=== PATIENT | male | born 1970 | race Caucasian/White ===

== ENCOUNTER → 2016-03-13 | Outpatient (CLI) | payer BC ==
[~2016-03-13] MED LIST: ACET-1256 PO; AMOX875T PO; CETI10TA84 PO; CITA40TA12 PO; ESCI1TAB10 PO; GLUC10007 PO; GLUCTAB7 PO; LEVO-366 PO; MULT-506 PO; NAPR1TAB9 PO; OMEG10007 PO; ONDA4TAB46 PO; OXCA150T2 PO; OXCA1TAB28 PO; OXCA300T PO; OXYC-57 PO; TRL300 PO
--- NOTE | 2016-03-13 10:31 | DIAGNOSTIC IMAGING REPORT ---
ABDOMINAL WALL ULTRASOUND CLINICAL HISTORY: Ventral hernia COMPARISON STUDY: No previous studies for comparison. FINDINGS: Ultrasonographic evaluation of the midline abdominal wall was performed in the area of clinical concern. No hernia was visualized. IMPRESSION: No ultrasonographic evidence of a midline ventral hernia. Electronically signed by: Randolph Pena M.D. 03/13/2016 10:30 AM Dictated Date/Time: 03/13/2016 10:29 AM
== END | disposition home or self-care (01) ==
LOC: C.ULTRBC 09:56
PROVIDERS: ATTEND Internal Medicine
DX: K43.9 Ventral hernia without obstruction or gangrene (principal)

== ENCOUNTER 2016-03-19 18:18 | Emergency (ER) | payer BC ==
[~2016-03-19] VITALS: Ht 188 cm; Wt 140.8 kg
[2016-03-19 18:27] VITALS: TEMP 36.8; Ht 188 cm; Wt 140.8 kg
[2016-03-19] MEDS ORDERED: CITA40TA12 PO (19:29)
[2016-03-19] MEDS ORDERED: CETI10TA84 PO (19:29)
[2016-03-19] MEDS ORDERED: ACET-1256 PO (19:29)
[2016-03-19] MEDS ORDERED: OMEG10007 PO (19:29)
[2016-03-19] MEDS ORDERED: GLUC10007 PO (19:29)
[2016-03-19] MEDS ORDERED: OXCA300T PO (19:29)
[2016-03-19] MEDS ORDERED: OXCA150T2 PO (19:29)
[2016-03-19] MEDS ORDERED: AMOX875T PO (19:30)
[2016-03-19] MEDS ORDERED: MoRPHine SULFATE 10 MG/ML CARP/VIAL IM STA (19:46)
[2016-03-19] MEDS ORDERED: KETOROLAC TROMETHAMINE 60 MG/2 ML VIAL IM STA (19:46)
--- NOTE | 2016-03-19 20:14 | DIAGNOSTIC IMAGING REPORT ---
SINUS CT CT DOSE: 559.13 mGy.cm HISTORY: Frontal headache. TECHNIQUE: Multiaxial CT images of the paranasal sinuses were performed and reformatted in the coronal plane without the use of contrast. COMPARISON: Brain MRI 01/08/2016. FINDINGS: The frontal sinuses, right ethmoid air cells, sphenoid sinuses, and right maxillary sinus are clear. There is near complete opacification of the left maxillary sinus which contains a few small gas bubbles and fluid levels. There is mild mucoperiosteal thickening within the lower ethmoid air cells. There is widening of the left maxillary ostium. There is associated opacification of the left ostiomeatal unit. The orbital floors and lamina papyracea are intact. There is thinning of the left uncinate process. The mastoid air cells are clear. The visualized orbits and brain parenchyma are unremarkable. Minimal right nasal septal deviation with a small right-sided nasal spur. IMPRESSION: Near complete opacification of the left maxillary sinus which contains a a few small gas bubbles/fluid levels which is similar to the prior brain MRI. There is associated widening of the left maxillary ostium/ostiomeatal unit with thinning of the uncinate process. Findings favor acute on chronic left maxillary sinusitis. However, an underlying polyp/lesion could be obscured by the opacification. Therefore, follow up nonemergent ENT consultation is recommended for further evaluation. Electronically signed by: Nikko Melgar M.D. 03/19/2016 8:13 PM Dictated Date/Time: 03/19/2016 8:06 PM
[2016-03-19] MEDS ORDERED: LEVO-366 PO (21:12)
[2016-03-19] MEDS ORDERED: ONDA4TAB46 PO (21:12)
[2016-03-19] MEDS ORDERED: OXYC-57 PO (21:12)
--- NOTE | 2016-03-19 21:15 | EMERGENCY ROOM VISIT NOTE ---
History Report prepared by Kita: Alexei Pino Under the Supervision of: Dr. Deepak Moses D.O. First contact with patient: 19:40 Chief Complaint: REFERRED BY DOCTOR Stated Complaint: HEAD PAIN, WEEK AND BODY STIFFINS History of Present Illness The patient is a 45 year old male who presents to the Emergency Room with complaints of persistent head pain beginning about 9 days ago. He notes that around this past Thanksgiving he had reoccurring upper respiratory infections. He had followed with his PCP regarding an US for a possible hernia and was prescribed Augmentin. He notes he began to develop a headache after taking the Augmentin. The patient rates his pain a 7 or 8 out of 10 in severity, but notes that when it jumps to a 9/10 he begins to have dizziness with his head pain. He has had some neck and body stiffness, and nausea, but denies any fever or vomiting. The patient has taken 1,000 mg of Acetaminophen every 4 or 5 hours which provides short-term relief of his symptoms. Source of History: patient Onset: about 9 days ago Position: head Symptom Intensity: 7-8/10 in severity Quality: other (head pain) Timing: other (persistent) Modifying Factors (Relieving): other (acetaminophen) Associated Symptoms: + nausea, No fevers, No vomiting Note: The patient notes having some occasional dizziness. Review of Systems See HPI for pertinent positives & negatives. A total of 10 systems reviewed and were otherwise negative. Past Medical & Surgical Medical Problems: (1) History of URI (upper respiratory infection) Family History No pertinent family history stated. Social History Smoking Status: Former Smoker Current/Historical Medications Scheduled Amoxicillin & Pot Clavulanate (Augmentin 875-125 mg), 1 TAB PO BID Cetirizine (Zyrtec), 10 MG PO DAILY Citalopram Hydrobromide (Celexa), 40 MG PO QPM Fish Oil ([place]-3), 4 GM PO DAILY Glucosamine Sulfate (Glucosamine), 1,000 MG PO DAILY Levofloxacin (Levaquin), 500 MG PO DAILY Oxcarbazepine (Trileptal), 150 MG PO QPM Oxcarbazepine (Trileptal), 300 MG PO QAM Scheduled PRN Acetaminophen (Tylenol), 1,000 MG PO Q4 PRN for Pain Ondansetron Hcl (Zofran), 4 MG PO Q6H PRN for Nausea Oxycodone/Acetaminophen 5MG/325MG (Percocet 5MG/325MG), 1 TAB PO Q6H PRN for Pain Allergies Coded Allergies: No Known Allergies (Unverified , 03/19/16) Physical Exam Vital Signs Date Time Temp Pulse Resp B/P Pulse Ox O2 Delivery O2 Flow Rate FiO2 03/19/16 20:26 71 16 105/57 96 Room Air 03/19/16 18:27 36.8 80 18 139/87 96 Room Air Physical Exam CONSTITUTIONAL/VITAL SIGNS: Reviewed / noted above. GENERAL: Non-toxic in appearance. INTEGUMENTARY: Warm, dry, and [place]. HEAD: Normocephalic. Tenderness to percussion of the frontal and maxillary sinuses. EYES: without scleral icterus or trauma. ENT/OROPHARYNX: clear and moist. LYMPHADENOPATHY/NECK: Is supple without lymphadenopathy or meningismus. RESPIRATORY: Lungs clear and equal. CARDIOVASCULAR: Regular rate and rhythm. GI/ABDOMEN: Soft and nontender. No organomegaly or pulsatile mass. No rebound or guarding. Normal bowel sounds. EXTREMITIES: Warm and well perfused. BACK: No CVA tenderness. NEUROLOGICAL: Intact without focal deficits. PSYCHIATRIC: normal affect. MUSCULOSKELETAL: Normally developed with good muscle tone. Medical Decision & Procedures ER Provider Diagnostic Interpretation: CT results as stated below per my review and radiologist interpretation: SINUS CT FINDINGS: The frontal sinuses, right ethmoid air cells, sphenoid sinuses, and right maxillary sinus are clear. There is near complete opacification of the left maxillary sinus which contains a few small gas bubbles and fluid levels. There is mild mucoperiosteal thickening within the lower ethmoid air cells. There is widening of the left maxillary ostium. There is associated opacification of the left ostiomeatal unit. The orbital floors and lamina papyracea are intact. There is thinning of the left uncinate process. The mastoid air cells are clear. The visualized orbits and brain parenchyma are unremarkable. Minimal right nasal septal deviation with a small right-sided nasal spur. IMPRESSION: Near complete opacification of the left maxillary sinus which contains a a few small gas bubbles/fluid levels which is similar to the prior brain MRI. There is associated widening of the left maxillary ostium/ostiomeatal unit with thinning of the uncinate process. Findings favor acute on chronic left maxillary sinusitis. However, an underlying polyp/lesion could be obscured by the opacification. Therefore, follow up nonemergent ENT consultation is recommended for further evaluation. Electronically signed by: Nikko Melgar M.D. 03/19/2016 8:13 PM Dictated Date/Time: 03/19/2016 8:06 PM Medications Administered Medications (Trade) Dose Ordered Sig/Nik Route Start Time Stop Time Status Last Admin Dose Admin Ketorolac Tromethamine (Toradol Inj) 60 mg NOW STAT IM 03/19/16 19:46 03/19/16 19:48 DC 03/19/16 19:52 60 MG Morphine Sulfate (MoRPHine SULFATE INJ) 6 mg NOW STAT IM 03/19/16 19:46 03/19/16 19:48 DC 03/19/16 19:52 6 MG ED Course 1941: Previous medical records were reviewed. The patient was evaluated in room C9. A complete history and physical examination was performed. 1945: Ordered Morphine Sulfate 6 mg IM, and Toradol Inj 60 mg IM. Medical Decision Differential includes: Acute intracranial bleed, trauma, meningitis, encephalitis, increased intracranial pressure, mass or mass effect, facial or dental infection, temporal arteritis, CVA, TIA, acute hypertensive emergency, sinusitis, carbon monoxide exposure. This is a 45-year-old male who presents to the ED with a chief complaint headache. The patient states that he has been on 9 days Augmentin for a frontal headache associated with a bili sinus infection. The patient denies any fevers. A little nausea but no vomiting. He has no other complaints at this time. He does have some tenderness to percussion of the frontal maxillary sinuses. A CT scan of the sinuses suggest acute on chronic sinusitis. Nonemergent ENT follow-up was recommended. The patient was started on Levaquin. He was given a referral to Dr. Amador. He was also given a prescription for Zofran and Percocet. Impression Primary Impression: Sinusitis Scribe Attestation The scribe's documentation has been prepared under my direction and personally reviewed by me in its entirety. I confirm that the note above accurately reflects all work, treatment, procedures, and medical decision making performed by me. Departure Information Dispostion Home / Self-Care Prescriptions Ondansetron Hcl (ZOFRAN) 4 Mg Tab 4 MG PO Q6H Y for Nausea, #10 TAB Prov: Deepak Moses D.O. 03/19/16 Oxycodone/Acetaminophen 5MG/325MG (PERCOCET 5MG/325MG) Tab 1 TAB PO Q6H Y for Pain, #20 TAB Prov: Deepak Moses D.O. 03/19/16 Levofloxacin (Levaquin) 500 Mg Tab 500 MG PO DAILY for 10 Days, #10 TAB Prov: Deepak Moses D.O. 03/19/16 Referrals RV. Davila MD (PCP) Patient Instructions [facility], Sinusitis Acute Additional Instructions Levaquin as prescribed. Percocet as prescribed. No driving within 6 hours of use. Do not take additional Tylenol while taking Percocet. Zofran: Allow one tablet to dissolve under the tongue every 6 hours as needed for nausea or vomiting. Follow-up with your doctor next week for recheck. Return for worsening.
[2016-03-19 21:27] VITALS: BP 118/65; PULSE 83; O2SAT 96
[2016-03-19] MEDS ORDERED: PERCOCET HOME PACK PO ONE (21:30)
[2016-05-18] MEDS ORDERED: ESCI1TAB10 PO (08:50)
[2016-05-18] MEDS ORDERED: MULT-506 PO (08:50)
[2016-05-18] MEDS ORDERED: OXCA1TAB28 PO (08:50)
[2016-05-18] MEDS ORDERED: GLUCTAB7 PO (08:50)
[2016-05-18] MEDS ORDERED: TRL300 PO (08:50)
== END 2016-03-19 21:30 | disposition home or self-care (01) ==
LOC: C.EDB 18:20 → C.EDC 21:30
DX: J32.9 Chronic sinusitis, unspecified (principal); Z87.891 Personal history of nicotine dependence

== ENCOUNTER 2016-03-22 09:00 | Inpatient (IN) | payer BC ==
[~2016-03-22] VITALS: Ht 188 cm; Wt 142.5 kg
[~2016-03-22 09:00] MED LIST changes: -ESCI1TAB10 PO; -GLUCTAB7 PO; -MULT-506 PO; -NAPR1TAB9 PO; -OXCA1TAB28 PO; -TRL300 PO
[2016-03-22] MEDS ORDERED: NAPR1TAB9 PO (09:26)
[2016-03-22] MEDS ORDERED: SODIUM CHLORIDE 0.9% 1000ML 500 ML IV STA (09:33)
[2016-03-22] MEDS ORDERED: SODIUM CHLORIDE 0.9% 1000ML 1,000 ML IV STA (09:33)
[2016-03-22] MEDS ORDERED: ONDANSETRON INJ 2 MG/ML 2 ML VIAL IV STA (09:33)
[2016-03-22] MEDS ORDERED: DEXAMETHASONE SOD INJ 10 MG/ML VIAL IV ONE (09:45)
[2016-03-22] MEDS ORDERED: OPTIRAY 320 IV PRN (10:00)
[2016-03-22] MEDS: MoRPHine SULFATE 10 MG/ML CARP/VIAL IV PRN ×2 (10:31→12:52)
[2016-03-22 10:47] LABS: BASO % 0.5 %; BASO ABS # 0.04 K/uL (0-0.2); COMPLETE YES; EOS % 4.9 %; HEMATOCRIT 48.2 % (42-52); IG% 0.5 %; LYMPH % 15.3 %; LYMPH ABS # 1.32 K/uL (1.2-3.4); MEAN CELL VOLUME 86.4 fL (80-100); MEAN CORPUSCULAR HEMOGLOBIN 30.3 pg (25-34); MEAN CORPUSCULAR HGB CONC 35.1 g/dl (32-36); MEAN PLATELET VOLUME 9.5 fL (7.4-10.4); MONO % 7.8 %; PLATELET COUNT 275 K/uL (130-400); RED BLOOD COUNT 5.58 M/uL (4.7-6.1)
[2016-03-22 11:03] LABS: BUN/CREATININE RATIO 13.8 (10-20); CALCIUM 8.9 mg/dl (8.5-10.1); CREATININE 0.98 mg/dl (0.60-1.40); POTASSIUM 4.2 mmol/L (3.5-5.1)
--- NOTE | 2016-03-22 11:50 | DIAGNOSTIC IMAGING REPORT ---
HEAD CT NONCONTRAST CT DOSE: HISTORY: Headache Evaluate for hemorrhage or pathology TECHNIQUE: Multiaxial CT images of the head were performed without the use of intravenous contrast. Comparison: 01/08/2016 Findings: Opacified left maxillary sinus The calvarium and skull base are intact. The ventricles and sulci are within normal limits. There is no mass, hematoma, midline shift, or acute infarct. Impression: Opacified left maxillary sinus. Normal brain. Electronically signed by: Jae Calloway M.D. 03/22/2016 11:49 AM Dictated Date/Time: 03/22/2016 11:47 AM
--- NOTE | 2016-03-22 11:52 | DIAGNOSTIC IMAGING REPORT ---
CT brain angiogram HEAD ANGIO WITH CONTRAST CLINICAL HISTORY: Headache mental status change TECHNIQUE: Transaxial acquisition with multi axial reformatted images COMPARISON STUDY: None FINDINGS: Intracranial vasculature is unremarkable. All major arterial structures are intact. There is no significant stenotic or aneurysmal process. IMPRESSION: Normal study. Opacification left maxillary sinus is again noted. Electronically signed by: Jae Calloway M.D. 03/22/2016 11:51 AM Dictated Date/Time: 03/22/2016 11:49 AM
[2016-03-22] MEDS ORDERED: XYLOCAINE 1%/SOD BICARB 20 ML VIAL INFIL ONE (12:15)
--- NOTE | 2016-03-22 13:58 | DIAGNOSTIC IMAGING REPORT ---
FLUOROSCOPICALLY GUIDED LUMBAR PUNCTURE CLINICAL HISTORY: headache FLUOROSCOPY TIME: 0.2 minutes PROCEDURE: The procedure, risks and benefits were discussed with the patient including the risk of spinal headache, bleeding and infection. The patient agreed to the procedure and informed written consent was obtained. The procedure was performed by Dr. Calloway following a timeout. The left L4-L5 interlaminar space was targeted. Skin overlying the space was prepped and draped in the usual sterile fashion and local anesthesia was achieved with 1% lidocaine. Under intermittent fluoroscopic guidance, a 20-gauge x 3 1/2 in. Sprotte needle was inserted into the thecal sac. A total of 10 cc of clear, colorless cerebral spinal fluid was obtained and spread amongst 4 vials. The patient tolerated the procedure well. There were no immediate complications. The specimens were sent to the laboratory at the request of the referring physician. IMPRESSION: Successful fluoroscopic guided lumbar puncture with removal of 10 cc of clear, colorless cerebral spinal fluid. No immediate complications. Electronically signed by: Jae Calloway M.D. 03/22/2016 1:56 PM Dictated Date/Time: 03/22/2016 1:56 PM
--- NOTE | 2016-03-22 14:12 | EMERGENCY ROOM VISIT NOTE ---
History Report prepared by Kita: Forrest Godoy Under the Supervision of: Dr. Armando Sandhu M.D. First contact with patient: 09:32 Chief Complaint: HEAD PAIN Stated Complaint: SEVERE HEAD PAIN History of Present Illness The patient is a 45 year old male who presents to the Emergency Room with complaints of worsening head pain for the past two weeks. The headache is severe. The pain initially started in the sinuses but has since spread. The headache is more frontal. The patient has been taking leftover Percocet, which hasn't helped much. The patient finds it more difficult to think and feels slower since the onset of this headache. He also notes some rhinorrhea. The patient denies any fevers, nausea, or vomiting. The patient was in the ED two days ago for the headache, which has since worsened. He had a CT of the sinuses. The patient was started on Levaquin in the ED. He finished Augmentin two days ago that he was prescribed by his PCP. The patient hasn't felt any better since taking the new antibiotics. The patient did not fall or hit his head recently. He has had sinus infections before but does not have an extensive history of sinus problems. The patient does not experience headaches often. Source of History: patient Onset: two weeks Position: head Symptom Intensity: severe Timing: worsening Associated Symptoms: No fevers, No nausea, No vomiting Review of Systems See HPI for pertinent positives & negatives. A total of 10 systems reviewed and were otherwise negative. Past Medical & Surgical Medical Problems: (1) Allergic rhinitis (2) Depression (3) History of URI (upper respiratory infection) (4) Low back pain (5) Seizure disorder (6) Sinusitis, acute maxillary Family History No pertinent family history Social History Smoking Status: Former Smoker Current/Historical Medications Scheduled Cetirizine (Zyrtec), 10 MG PO DAILY Citalopram Hydrobromide (Celexa), 40 MG PO QPM Fish Oil ([place]-3), 4 GM PO DAILY Glucosamine Sulfate (Glucosamine), 1,000 MG PO DAILY Levofloxacin (Levaquin), 500 MG PO DAILY Naproxen (Aleve), 440 MG PO DIRECTED Oxcarbazepine (Trileptal), 150 MG PO QPM Oxcarbazepine (Trileptal), 300 MG PO QAM Scheduled PRN Acetaminophen (Tylenol), 1,000 MG PO Q4 PRN for Pain Ondansetron Hcl (Zofran), 4 MG PO Q6H PRN for Nausea Oxycodone/Acetaminophen 5MG/325MG (Percocet 5MG/325MG), 1 TAB PO Q6H PRN for Pain Allergies Coded Allergies: No Known Allergies (Unverified , 03/22/16) Physical Exam Vital Signs Date Time Temp Pulse Resp B/P Pulse Ox O2 Delivery O2 Flow Rate FiO2 03/22/16 16:05 94 Room Air 03/22/16 15:09 72 18 115/66 94 Room Air 03/22/16 13:17 68 16 116/58 92 Room Air 03/22/16 11:44 69 18 119/71 94 Room Air 03/22/16 10:48 66 18 104/55 97 Room Air 03/22/16 09:03 36.7 79 20 150/79 92 Room Air Physical Exam GENERAL: Patient is in no acute distress. HEENT: No acute trauma, normocephalic atraumatic, mucous membranes moist, no nasal congestion, no scleral icterus, no real tenderness to percuss the sinuses. NECK: No stridor, no adenopathy, no meningismus, trachea is midline. LUNGS: Clear to auscultation bilaterally, no wheeze, no rhonchi, breath sounds equal. HEART: Without murmurs gallops or rubs, regular rate and rhythm. ABDOMEN: Soft, nontender, bowel sounds positive, no hernias, no peritonitis. EXTREMITIES: No cyanosis or edema, full range of motion of all the joints without pain or difficulty, no signs for acute trauma. NEUROLOGIC: Oriented x 3, no acute motor or sensory deficits, no focal weakness. SKIN: No rash, no jaundice, mild diaphoresis on the forehead. Medical Decision & Procedures ER Provider Diagnostic Interpretation: CT results as stated below per my review and radiologist interpretation: CT brain angiogram HEAD ANGIO WITH CONTRAST CLINICAL HISTORY: Headache mental status change TECHNIQUE: Transaxial acquisition with multi axial reformatted images COMPARISON STUDY: None FINDINGS: Intracranial vasculature is unremarkable. All major arterial structures are intact. There is no significant stenotic or aneurysmal process. IMPRESSION: Normal study. Opacification left maxillary sinus is again noted. Electronically signed by: Jae Calloway M.D. 03/22/2016 11:51 AM Dictated Date/Time: 03/22/2016 11:[address] CT DOSE: HISTORY: Headache Evaluate for hemorrhage or pathology TECHNIQUE: Multiaxial CT images of the head were performed without the use of intravenous contrast. Comparison: 01/08/2016 Findings: Opacified left maxillary sinus The calvarium and skull base are intact. The ventricles and sulci are within normal limits. There is no mass, hematoma, midline shift, or acute infarct. Impression: Opacified left maxillary sinus. Normal brain. Electronically signed by: Jae Calloway M.D. 03/22/2016 11:49 AM Dictated Date/Time: 03/22/2016 11:47 AM FLUOROSCOPICALLY GUIDED LUMBAR PUNCTURE CLINICAL HISTORY: headache FLUOROSCOPY TIME: 0.2 minutes PROCEDURE: The procedure, risks and benefits were discussed with the patient including the risk of spinal headache, bleeding and infection. The patient agreed to the procedure and informed written consent was obtained. The procedure was performed by Dr. Calloway following a timeout. The left L4-L5 interlaminar space was targeted. Skin overlying the space was prepped and draped in the usual sterile fashion and local anesthesia was achieved with 1% lidocaine. Under intermittent fluoroscopic guidance, a 20-gauge x 3 1/2 in. Sprotte needle was inserted into the thecal sac. A total of 10 cc of clear, colorless cerebral spinal fluid was obtained and spread amongst 4 vials. The patient tolerated the procedure well. There were no immediate complications. The specimens were sent to the laboratory at the request of the referring physician. IMPRESSION: Successful fluoroscopic guided lumbar puncture with removal of 10 cc of clear, colorless cerebral spinal fluid. No immediate complications. Electronically signed by: Jae Calloway M.D. 03/22/2016 1:56 PM Dictated Date/Time: 03/22/2016 1:56 PM Laboratory Results 03/22/16 10:25 Red Blood Count 5.58, Mean Corpuscular Volume 86.4, Mean Corpuscular Hemoglobin 30.3, Mean Corpuscular Hemoglobin Concent 35.1, Mean Platelet Volume 9.5, Neutrophils (%) (Auto) 71.0, Lymphocytes (%) (Auto) 15.3, Monocytes (%) (Auto) 7.8, Eosinophils (%) (Auto) 4.9, Basophils (%) (Auto) 0.5, Neutrophils # (Auto) 6.11, Lymphocytes # (Auto) 1.32, Monocytes # (Auto) 0.67, Eosinophils # (Auto) 0.42, Basophils # (Auto) 0.04 03/22/16 10:25 Test 03/22/16 10:25 03/22/16 13:35 White Blood Count 8.60 K/uL (4.8-10.8) Red Blood Count 5.58 M/uL (4.7-6.1) Hemoglobin 16.9 g/dL (14.0-18.0) Hematocrit 48.2 % (42-52) Mean Corpuscular Volume 86.4 fL (80-100) Mean Corpuscular Hemoglobin 30.3 pg (25-34) Mean Corpuscular Hemoglobin Concent 35.1 g/dl (32-36) Platelet Count 275 K/uL (130-400) Mean Platelet Volume 9.5 fL (7.4-10.4) Neutrophils (%) (Auto) 71.0 % Lymphocytes (%) (Auto) 15.3 % Monocytes (%) (Auto) 7.8 % Eosinophils (%) (Auto) 4.9 % Basophils (%) (Auto) 0.5 % Neutrophils # (Auto) 6.11 K/uL (1.4-6.5) Lymphocytes # (Auto) 1.32 K/uL (1.2-3.4) Monocytes # (Auto) 0.67 K/uL (0.11-0.59) Eosinophils # (Auto) 0.42 K/uL (0-0.5) Basophils # (Auto) 0.04 K/uL (0-0.2) RDW Standard Deviation 39.7 fL (36.4-46.3) RDW Coefficient of Variation 12.5 % (11.5-14.5) Immature Granulocyte % (Auto) 0.5 % Immature Granulocyte # (Auto) 0.04 K/uL (0.00-0.02) Erythrocyte Sedimentation Rate 17 mm/hr (0-14) Anion Gap 7.0 mmol/L (3-11) Est Creatinine Clear Calc Drug Dose 143.9 ml/min Estimated GFR () 109.0 Estimated GFR (Non- 94.1 BUN/Creatinine Ratio 13.8 (10-20) Calcium Level 8.9 mg/dl (8.5-10.1) CSF Color COLORLESS CSF Appearance CLEAR CSF WBC 68 /uL (0-5) CSF RBC 28 /uL (0) CSF Xanthrochromic NO XANTHOCHROMIA CSF Cell Count Tube # 4 CSF Chemistry Tube # 2 CSF Glucose 52 mg/dl (40-70) CSF Total Protein 85.2 mg/dl (15.0-45.0) Laboratory results reviewed by me. Medications Administered Medications (Trade) Dose Ordered Sig/Nik Route Start Time Stop Time Status Last Admin Dose Admin Sodium Chloride (Nss 1000ml) 500 ml @ 999 mls/hr Q31M STAT IV 03/22/16 09:33 03/22/16 10:03 DC 03/22/16 10:31 999 MLS/HR Ondansetron HCl 4 mg 4 mg NOW STAT IV 03/22/16 09:33 03/22/16 09:42 DC 03/22/16 10:32 4 MG Sodium Chloride (Nss 1000ml) 1,000 ml @ 200 mls/hr Q5H STAT IV 03/22/16 09:33 03/22/16 14:32 DC 03/22/16 11:43 200 MLS/HR Morphine Sulfate (MoRPHine SULFATE INJ) 6 mg Q15M PRN IV 03/22/16 09:45 04/05/16 09:44 03/22/16 12:52 6 MG Dexamethasone Sodium Phosphate 10 mg 10 mg NOW ONCE IV 03/22/16 09:45 03/22/16 09:46 DC 03/22/16 10:33 10 MG Ceftriaxone Sodium/Dextrose (Rocephin Inj/D5 50ml) 70 ml @ 100 mls/hr ONE STAT IV 03/22/16 14:37 03/22/16 15:18 DC 03/22/16 14:45 100 MLS/HR Vancomycin HCl (Vancomycin 1gm/ 270ml Nss) 1 gm NOW STAT IV 03/22/16 14:37 03/22/16 14:39 DC 03/22/16 15:22 1 GM Morphine Sulfate (MoRPHine SULFATE INJ) 4 mg Q2H PRN IV 03/22/16 15:15 04/05/16 15:14 03/22/16 15:25 4 MG Procedure Lumbar Puncture Indication: Severe headache. Verbal consent was obtained after the risks and benefits were explained, including but not limited to headache, bleeding/clotting, scarring, infection, pain, and bone/joint/nerve damage. At this time, the risks of the procedure are less than the risks of NOT performing the procedure. A time out was taken and the correct patient and site identified. The patient was placed in the seated position and the back was prepped with betadine and draped in the standard fashion. The L3 intervertebral space was identified, anesthetized locally with 1 % lidocaine without epinephrine, and the spinal needle was inserted through the skin with the bevel parallel to the dural fibers. No vials of CSF were obtained. The stylet was replaced and the needle was removed. A bandaid was placed and the patient was placed in the supine position. The procedure was unsuccessful. ED Course 0932: The patient was evaluated in room B3b. A complete history and physical exam was performed. 0933: BSS 1000 ml @ 200 mls/hr, Zofran 4 mg IV, NSS 500 ml @ 999 mls/hr. 0940: Discussed the risks & benefits of a spinal tap. The patient verbalized understanding and agreement. 0945: Decadron 10 mg IV, Morphine Sulfate 6 mg IV. 1207: Updated the patient. He is willing to have a lumbar puncture. 1227: Lumbar puncture attempted. Please see procedural note above. 1250: The LP was unsuccessful. Will contact Radiology for fluoroscopy. 1252: Spoke with Dr. Calloway, Radiologist. He will attempt the LP under fluoroscopy. 1437: Vancomycin 1 gm / 270 ml NSS IV, Ceftriaxone Sodium 2000 mg / Dextrose 70 ml @ 100 mls/hr. 1440: Updated the patient. He verbalized understanding and agreement. Medicine will be paged. 1445: Discussed the case with Dr. Monge, [facility]. The patient will be evaluated. Medical Decision Differential diagnosis includes sinusitis, failed outpatient treatment, intracranial bleeding, aneurysm, meningitis, encephalitis, dehydration, intracranial mass. There is no leukocytosis or concerning anemia. No significant electrolyte abnormality or kidney failure. Brain CT shows no acute bleed or mass effect. Sinusitis was noted. Brain CT angiography does not show any evidence for aneurysm. On exam, the patient was not toxic or febrile. He did not have tenderness over the sinuses with percussion. There is no meningismus. He had a normal neurologic evaluation. I talked to the patient about a lumbar puncture, he did consent. I was unable to access the spinal canal though after several attempts. Further attempts were halted and the patient was sent to fluoroscopy. They were able to obtain CSF fluid via fluoroscopy. The fluid does suggest a meningitis. No organisms seen on Gram stain. The patient received IV morphine, IV Zofran, IV saline and IV Decadron. He was given IV ceftriaxone and IV vancomycin. He seems to be doing well, he is resting comfortably. I talked to the patient about his findings, I spoke with the social work case manager. The on-call hospitalist was consulted. Consults Time Called: 1245 Consulting Physician: Dr. Calloway, Radiologist Returned Call: [phone]: Spoke with Dr. Calloway, Radiologist. He will attempt the LP under fluoroscopy. Additional Consults: Time Called: 1440 Consulted Physician: Dr. Monge, [facility] Returned Call: 1445 Additional Comments: 1445: Discussed the case with Dr. Monge, [facility]. The patient will be evaluated. Impression Primary Impression: Meningitis Scribe Attestation The scribe's documentation has been prepared under my direction and personally reviewed by me in its entirety. I confirm that the note above accurately reflects all work, treatment, procedures, and medical decision making performed by me. Departure Information Dispostion Being Evaluated By Hospitalist Referrals RV. Davila MD (PCP) Patient Instructions My [facility]
[2016-03-22 14:27] LABS: CSF CHEMISTRY TUBE # 2
[2016-03-22 14:33] LABS: CSF APPEARANCE CLEAR; CSF COLOR COLORLESS; CSF XANTHOCHROMIC NO XANTHOCHROMIA
[2016-03-22 14:34] LABS: CSF TOTAL PROTEIN 85.2 mg/dl (15.0-45.0)
[2016-03-22] MEDS ORDERED: VANCOMYCIN 1GM/270ML NSS IV STA (14:37)
[2016-03-22] MEDS ORDERED: CEFTRIAXONE SOD INJ 2,000 MG in DEXTROSE 5% 50ML 50 ML IV STA (14:37)
[2016-03-22 14:45] LABS: CSF APPEARANCE CLEAR; CSF COLOR COLORLESS; CSF XANTHOCHROMIC NO XANTHOCHROMIA
[2016-03-22] MEDS ORDERED: ACETAMINOPHEN IV 100 ML IV PRN (15:15)
[2016-03-22] MEDS ORDERED: ZOLPIDEM TARTRATE 5 MG TAB PO PRN (15:15)
[2016-03-22] MEDS ORDERED: MAGNESIUM HYDROXIDE SUSP 30 ML UDC PO PRN (15:15)
[2016-03-22] MEDS ORDERED: PROMETHAZINE HCL INJ 12.5 MG in SODIUM CHLORIDE 0.9% 50ML 50 ML IV PRN (15:15)
[2016-03-22] MEDS ORDERED: LORAZEPAM 2 MG/ML 1 ML VIAL IV PRN (15:15)
[2016-03-22] MEDS ORDERED: OXYCODONE/ACETAMINOPHEN 5-325 TAB PO PRN (15:15)
[2016-03-22] MEDS ORDERED: DiphenhydrAMINE HCL 50 MG/ML VIAL IV PRN (15:15)
[2016-03-22] MEDS ORDERED: ONDANSETRON INJ 2 MG/ML 2 ML VIAL IV PRN (15:15)
[2016-03-22] MEDS ORDERED: ALUMINUM/MAGNESIUM/SIMETH (MAALOX MAX) 30 ML UDC PO PRN (15:15)
[2016-03-22] MEDS ORDERED: ACETAMINOPHEN 325 MG TAB PO PRN (15:15)
[2016-03-22] MEDS ORDERED: MoRPHine SULFATE 2 MG/ML CARP IV PRN (15:15)
[2016-03-22] MEDS ORDERED: VANCOMYCIN CONSULT ACTIVE PRN (15:23)
[2016-03-22] MEDS: MoRPHine SULFATE 4 MG/ML 1 ML CARP\\VIAL IV PRN ×2 (15:25→22:53)
[2016-03-22 16:05] VITALS: O2SAT 94; Ht 188 cm; Wt 142.5 kg
--- NOTE | 2016-03-22 16:23 | History and Physical ---
History & Physical Date & Time of Service: Mar 22, 2016 at 16:22 Chief Complaint: Severe Head Pain Primary Care Physician: RV. Davila MD History of Present Illness Source: patient, family The patient is a 45-year-old male who presents emergency department with worsening headache in particular over the past 24 hours. He reports that he initially developed a respiratory infection around Thanksgiving time which did resolve without treatment, then had a recurrence around [place] time which did seem to resolve somewhat. He did shortly after the second episode, developed additional sinus symptoms, and was placed on Augmentin by his PCP. He was seen at the emergency department 3 days ago, and was changed to levofloxacin. With the worsening of symptoms and developing of severe headache over the past 24 hours, he presents to the emergency department for assessment today, underwent a lumbar puncture under fluoroscopic guidance today, and was diagnosed with meningitis, and was then referred for evaluation for admission. Family History No pertinent family history Social History Smoking Status: Former Smoker Smokeless Tobacco Use: No Alcohol Use: none Drug Use: none Marital Status: Housing status: lives with family Multi-Drug Resistant Organisms History of MDRO: No Allergies Coded Allergies: No Known Allergies (Unverified , 03/22/16) Home Medications Scheduled Cetirizine (Zyrtec), 10 MG PO DAILY Citalopram Hydrobromide (Celexa), 40 MG PO QPM Fish Oil ([place]-3), 4 GM PO DAILY Glucosamine Sulfate (Glucosamine), 1,000 MG PO DAILY Levofloxacin (Levaquin), 500 MG PO DAILY Naproxen (Aleve), 440 MG PO DIRECTED Oxcarbazepine (Trileptal), 150 MG PO QPM Oxcarbazepine (Trileptal), 300 MG PO QAM Scheduled PRN Acetaminophen (Tylenol), 1,000 MG PO Q4 PRN for Pain Ondansetron Hcl (Zofran), 4 MG PO Q6H PRN for Nausea Oxycodone/Acetaminophen 5MG/325MG (Percocet 5MG/325MG), 1 TAB PO Q6H PRN for Pain Review of Systems The patient denies chest pain, palpitations, lower extremity swelling, vision change, hearing change, fevers, chills, sweats, weight change, nausea, vomiting , abdominal pain, pelvic pain, blood in urine or stool, dysuria, urinary frequency or urgency, memory loss, rash, abnormal bruising or bleeding, imbalance, focal weakness, arthralgias or myalgias, night sweats. The review of systems is otherwise negative other than for that already noted above, and at least 10 systems have been reviewed. Physical Exam Vital Signs Date Time Temp Pulse Resp B/P Pulse Ox O2 Delivery O2 Flow Rate FiO2 03/22/16 16:05 94 Room Air 03/22/16 15:09 72 18 115/66 94 Room Air 03/22/16 13:17 68 16 116/58 92 Room Air 03/22/16 11:44 69 18 119/71 94 Room Air 03/22/16 10:48 66 18 104/55 97 Room Air 03/22/16 09:03 36.7 79 20 150/79 92 Room Air The patient is awake, well-developed and adequately nourished, alert and oriented 3, normocephalic and atraumatic, lying in bed and in no acute distress. HEENT--PERRL, EOMI, mucous membranes and oropharynx dry. Neck--supple, no JVD or bruits, thyroid normal, trachea midline, no adenopathy. Heart--normal S1 and S2, no extra beats, no murmurs, rubs or gallops. Lungs--clear bilaterally , no respiratory distress, no accessory muscle use. Abdomen--normal bowel sounds and soft, nontender and nondistended, no hernias or masses, no organomegaly. Extremities--no cyanosis, clubbing or edema. There are good distal pulses b/l. Dermatologic--normal skin turgor, normal color, warm and dry, no abnormal lymph nodes, no rash. Neurologic--cranial nerves II through XII grossly intact. Rheumatologic--examination is limited post lumbar puncture. Psychiatric--normal affect. Diagnostics Laboratory Results Results Past 24 Hours Test 03/22/16 10:25 03/22/16 13:35 Range/Units White Blood Count 8.60 4.8-10.8 K/uL Red Blood Count 5.58 4.7-6.1 M/uL Hemoglobin 16.9 14.0-18.0 g/dL Hematocrit 48.2 42-52 % Mean Corpuscular Volume 86.4 80-100 fL Mean Corpuscular Hemoglobin 30.3 25-34 pg Mean Corpuscular Hemoglobin Concent 35.1 32-36 g/dl Platelet Count 275 130-400 K/uL Mean Platelet Volume 9.5 7.4-10.4 fL Neutrophils (%) (Auto) 71.0 % Lymphocytes (%) (Auto) 15.3 % Monocytes (%) (Auto) 7.8 % Eosinophils (%) (Auto) 4.9 % Basophils (%) (Auto) 0.5 % Neutrophils # (Auto) 6.11 1.4-6.5 K/uL Lymphocytes # (Auto) 1.32 1.2-3.4 K/uL Monocytes # (Auto) 0.67 0.11-0.59 K/uL Eosinophils # (Auto) 0.42 0-0.5 K/uL Basophils # (Auto) 0.04 0-0.2 K/uL RDW Standard Deviation 39.7 36.4-46.3 fL RDW Coefficient of Variation 12.5 11.5-14.5 % Immature Granulocyte % (Auto) 0.5 % Immature Granulocyte # (Auto) 0.04 0.00-0.02 K/uL Erythrocyte Sedimentation Rate 17 0-14 mm/hr Sodium Level 140 136-145 mmol/L Potassium Level 4.2 3.5-5.1 mmol/L Chloride Level 103 98-107 mmol/L Carbon Dioxide Level 30 21-32 mmol/L Anion Gap 7.0 3-11 mmol/L Blood Urea Nitrogen 14 7-18 mg/dl Creatinine 0.98 0.60-1.40 mg/dl Est Creatinine Clear Calc Drug Dose 143.9 ml/min Estimated GFR () 109.0 Estimated GFR (Non- 94.1 BUN/Creatinine Ratio 13.8 10-20 Random Glucose 91 70-99 mg/dl Calcium Level 8.9 8.5-10.1 mg/dl CSF Color COLORLESS CSF Appearance CLEAR CSF WBC 68 0-5 /uL CSF RBC 28 0 /uL CSF Xanthrochromic NO XANTHOCHROMIA CSF Cell Count Tube # 4 CSF Chemistry Tube # 2 CSF Glucose 52 40-70 mg/dl CSF Total Protein 85.2 15.0-45.0 mg/dl Microbiology Results 03/22/16 Gram Stain - Final, Resulted 03/22/16 CSF Culture, Resulted Pending Diagnostic Radiology Patient Name: ZOE RAMIREZ Unit Number: [id number] Dictated: 03/22/161146 Transcribed: 03/22/161146 MS Printed Date/Time: [~ rep prt dt]/[~ rep prt tm] [~ rep ct labl] - [~ rep ct ivnm] [facility] [place] [address] Dictated: 03/22/161146 Transcribed: 03/22/16 114 MS Printed Date/Time: [~ rep prt dt]/[~ rep prt tm] [~ rep ct labl] - [~ rep ct ivnm] [~ rep ct add3]] HEAD CT NONCONTRAST CT DOSE: HISTORY: Headache Evaluate for hemorrhage or pathology TECHNIQUE: Multiaxial CT images of the head were performed without the use of intravenous contrast. Comparison: 01/08/2016 Findings: Opacified left maxillary sinus The calvarium and skull base are intact. The ventricles and sulci are within normal limits. There is no mass, hematoma, midline shift, or acute infarct. Impression: Opacified left maxillary sinus. Normal brain. Electronically signed by: Jae Calloway M.D. 03/22/2016 11:49 AM Dictated Date/Time: 03/22/2016 11:47 AM The status of this report is Signed. Draft = Not yet reviewed or approved by Radiologist. Signed = Reviewed and approved by Radiologist. <AttendingPhy></AttendingPhy> <FamilyPhy>RV. Davila MD</ FamilyPhy> <PrimaryPhy>RV. Davila MD</PrimaryPhy> <UnitNumber> [id number]</UnitNumber> <VisitNumber>[id number]</VisitNumber> <PatientName> ZOE RAMIREZ</PatientName> <DateOfBirth>1970</DateOfBirth> <Location> [facility]</Location> <ServiceDate>03/22/16</ServiceDate> <MNE>ESINDI</MNE> < OrderingPhy>Armando Sandhu M.D.</OrderingPhy> <OrderingPhyMNE>f rep ord dr nelson</ OrderingPhyMNE> <DictatingPhyMNE>f rep dict dr nelson</DictatingPhyMNE> <CCListMNE> f rep ct mne</CCListMNE> <AdmittingPhyMNE>f pt admit dr nelson</AdmittingPhyMNE> < AttendingPhyMNE>f pt attend dr nelson</AttendingPhyMNE> <ConsultingPhyMNE>f pt consult dr nelson</ConsultingPhyMNE> <FamilyPhyMNE>f pt fam dr nelson</FamilyPhyMNE> <OtherPhyMNE>f pt other dr nelson</OtherPhyMNE> < PrimaryPhyMNE>f pt prim care dr nelson</PrimaryPhyMNE> <ReferringPhyMNE>f pt referring dr nelson</ReferringPhyMNE> Patient Name: ZOE RAMIREZ Unit Number: [id number] Dictated: 03/22/[id number] Transcribed: 03/22/16 114 MS Printed Date/Time: [~ rep prt dt]/[~ rep prt tm] [~ rep ct labl] - [~ rep ct ivnm] [facility] Department [place], [place] [id number] Dictated: 03/22/161148 Transcribed: 03/22/16 114 MS Printed Date/Time: [~ rep prt dt]/[~ rep prt tm] [~ rep ct labl] - [~ rep ct ivnm] [~ rep ct add3]] CT brain angiogram HEAD ANGIO WITH CONTRAST CLINICAL HISTORY: Headache mental status change TECHNIQUE: Transaxial acquisition with multi axial reformatted images COMPARISON STUDY: None FINDINGS: Intracranial vasculature is unremarkable. All major arterial structures are intact. There is no significant stenotic or aneurysmal process. IMPRESSION: Normal study. Opacification left maxillary sinus is again noted. Electronically signed by: Jae Calloway M.D. 03/22/2016 11:51 AM Dictated Date/Time: 03/22/2016 11:49 AM The status of this report is Signed. Draft = Not yet reviewed or approved by Radiologist. Signed = Reviewed and approved by Radiologist. <AttendingPhy></AttendingPhy> <FamilyPhy>RV. Davila MD</ FamilyPhy> <PrimaryPhy>BalRV. Landa MD</PrimaryPhy> <UnitNumber> [id number]</UnitNumber> <VisitNumber>[id number]</VisitNumber> <PatientName> ZOE RAMIREZ</PatientName> <DateOfBirth>1970</DateOfBirth> <Location> [facility]</Location> <ServiceDate>03/22/16</ServiceDate> <MNE>ESINDI</MNE> < OrderingPhy>Armando Sandhu M.D.</OrderingPhy> <OrderingPhyMNE>f rep ord dr nelson</ OrderingPhyMNE> <DictatingPhyMNE>f rep dict dr nelson</DictatingPhyMNE> <CCListMNE> f rep ct mne</CCListMNE> <AdmittingPhyMNE>f pt admit dr nelson</AdmittingPhyMNE> < AttendingPhyMNE>f pt attend dr nelson</AttendingPhyMNE> <ConsultingPhyMNE>f pt consult dr nelson</ConsultingPhyMNE> <FamilyPhyMNE>f pt fam dr nelson</FamilyPhyMNE> <OtherPhyMNE>f pt other dr nelson</OtherPhyMNE> < PrimaryPhyMNE>f pt prim care dr nelson</PrimaryPhyMNE> <ReferringPhyMNE>f pt referring dr nelson</ReferringPhyMNE> FLUOROSCOPICALLY GUIDED LUMBAR PUNCTURE CLINICAL HISTORY: headache FLUOROSCOPY TIME: 0.2 minutes PROCEDURE: The procedure, risks and benefits were discussed with the patient including the risk of spinal headache, bleeding and infection. The patient agreed to the procedure and informed written consent was obtained. The procedure was performed by Dr. Calloway following a timeout. The left L4-L5 interlaminar space was targeted. Skin overlying the space was prepped and draped in the usual sterile fashion and local anesthesia was achieved with 1% lidocaine. Under intermittent fluoroscopic guidance, a 20-gauge x 3 1/2 in. Sprotte needle was inserted into the thecal sac. A total of 10 cc of clear, colorless cerebral spinal fluid was obtained and spread amongst 4 vials. The patient tolerated the procedure well. There were no immediate complications. The specimens were sent to the laboratory at the request of the referring physician. IMPRESSION: Successful fluoroscopic guided lumbar puncture with removal of 10 cc of clear, colorless cerebral spinal fluid. No immediate complications. Electronically signed by: Jae Calloway M.D. 03/22/2016 1:56 PM Dictated Date/Time: 03/22/2016 1:56 PM The sta Impression Assessment and Plan Meningitis/opacified left maxillary sinusitis--patient will be admitted to the telemetry unit for frequent neuro checks and close monitoring. He is status post lumbar puncture ever needs to remain supine 4 hours and then will be out of bed to chair as tolerated. He has received Decadron 10 mg IV, ceftriaxone 2 g IV and vancomycin IV in the emergency department. He will be continued on Decadron 6 mg IV every 6 hours, ceftriaxone 2 g IV every 12 hours, vancomycin IV per renal dose, and morphine sulfate 2-4 mg IV every 2 hours when necessary. We'll follow CSF studies, blood cultures, and serial CBC with differential, chemistry and magnesium levels. We'll consult infectious disease. Seizure disorder--continue Trileptal 3 mg by mouth every morning and 50 mg by mouth every afternoon. Depression--continue Celexa 40 mg by mouth every afternoon. Allergic rhinitis--continue cetirizine 10 mg by mouth daily. Chronic low back pain--we'll place on a [place] bed. Level of Care Telemetry Advanced Directives Existing Advance Directive: No Existing Living Will: No Existing Power of [employer] Aluminum: No Resuscitation Status FULL RESUSCITATION VTE Prophylaxis VTE Risk Assessment Done? Y/N: Yes Risk Level: Moderate Given or contraindicated: SCD's Social Service Consult None Apply
[2016-03-22 16:37] VITALS: BP 124/74; PULSE 74; TEMP 36.4; O2SAT 93
--- NOTE | 2016-03-22 17:33 | Pharmacy Progress Note ---
Pharmacy Antibiotic Consult Date of Service: Mar 22, 2016. Pharmacy Dosing Scope Pharmacy is consulted to initiate IV Vancomycin dosing therapy, order appropriate labs and adjust drug dose/frequency. Subjective The patient is a 45 year old male admitted on Mar 22, 2016 at 15:06. Objective Height (Feet): 6 Height (Inches): 2.00 Weight (Kilograms): 138.400 Lab Results (24hrs): Laboratory Tests Test 03/22/16 10:25 BUN/Creatinine Ratio 13.8 Blood Urea Nitrogen 14 mg/dl Creatinine 0.98 mg/dl White Blood Count 8.60 K/uL Red Blood Count 5.58 M/uL Hemoglobin 16.9 g/dL Hematocrit 48.2 % Mean Corpuscular Volume 86.4 fL Mean Corpuscular Hemoglobin 30.3 pg Mean Corpuscular Hemoglobin Concent 35.1 g/dl Platelet Count 275 K/uL Mean Platelet Volume 9.5 fL Neutrophils (%) (Auto) 71.0 % Lymphocytes (%) (Auto) 15.3 % Monocytes (%) (Auto) 7.8 % Eosinophils (%) (Auto) 4.9 % Basophils (%) (Auto) 0.5 % Neutrophils # (Auto) 6.11 K/uL Lymphocytes # (Auto) 1.32 K/uL Monocytes # (Auto) 0.67 K/uL Eosinophils # (Auto) 0.42 K/uL Basophils # (Auto) 0.04 K/uL Micro Results: Item Value Date Time Gram Stain - Final Resulted 03/22/16 1335 Cerebral Spinal Fluid Recent Pertinent Medications Item Value Date Time Vancomycin HCl 1 gm 03/22/16 1437 (Vancomycin 1gm/ NOW STAT/IV 03/22/16 1522 270ml Nss) Vancomycin HCl 536 ml @ 200 mls/hr 03/22/16 1800 1800 mg/Sodium TODAY@1800/IV Chloride Vancomycin HCl 534 ml @ 200 mls/hr 03/23/16 0200 1700 mg/Sodium Q8H/IV Chloride Assessment & Plan Vancomycin * 45 yo male admitted w/ meningitis * Loading dose: Vancomycin 2800mg IV x 1 dose (20mg/kg given in 2 separate doses) * Maintenance dose: Vancomycin 1700mg IV q8h (12.3mg/kg--modified dosing d/t BMI 39kg/m2) * Est half-life ~ 6.7hr * Goal trough level: 15-20mcg/mL * Trough level ordered for: 03/23/16 1800 Pharmacy will continue to follow and will adjust dose/frequency as necessary. Thank you
[2016-03-22] MEDS: NSS + 20MEQ KCL 1000ML 1,000 ML IV SCH (17:35)
[2016-03-22] MEDS ORDERED: VANCOMYCIN INJ 1,800 MG in SODIUM CHLORIDE 0.9% 500ML 500 ML IV SCH (18:00)
[2016-03-22] MEDS: DEXAMETHASONE INJ 6 MG in SYRINGE 0 ML IV SCH ×2 (18:29→22:53)
[2016-03-22 20:17] VITALS: BP 117/72; PULSE 86; TEMP 36.2; O2SAT 92
[2016-03-22] MEDS: CITALOPRAM 40 MG TAB PO SCH (20:57)
[2016-03-22] MEDS: OXCARBAZEPINE 150 MG TAB PO SCH (20:57)
[2016-03-22 22:47] VITALS: BP 108/70; PULSE 84; TEMP 36.3; O2SAT 95
[2016-03-23] VITALS (9 sets, daily range): BP systolic 117–139; BP diastolic 66–77; PULSE 70–82; TEMP 36.2–36.5; O2SAT 93–94
[2016-03-23] MEDS: VANCOMYCIN INJ 1,700 MG in SODIUM CHLORIDE 0.9% 500ML 500 ML IV SCH ×2 (03:08→10:21)
[2016-03-23] MEDS: CEFTRIAXONE SOD INJ 2,000 MG in DEXTROSE 5% 50ML 50 ML IV SCH ×2 (03:08→14:28)
[2016-03-23] MEDS: NSS + 20MEQ KCL 1000ML 1,000 ML IV SCH ×2 (03:25→14:28)
[2016-03-23] MEDS: DEXAMETHASONE INJ 6 MG in SYRINGE 0 ML IV SCH ×3 (06:23→18:32)
[2016-03-23 06:58] LABS: COMPLETE YES; EOS % 0.1 %; HEMATOCRIT 41.8 % (42-52); IG% 0.3 %; LYMPH % 6.1 %; LYMPH ABS # 0.93 K/uL (1.2-3.4); MEAN CELL VOLUME 84.8 fL (80-100); MEAN CORPUSCULAR HEMOGLOBIN 28.8 pg (25-34); MEAN PLATELET VOLUME 9.6 fL (7.4-10.4); MONO % 4.1 %; NEUT % 89.4 %; PLATELET COUNT 282 K/uL (130-400); RED BLOOD COUNT 4.93 M/uL (4.7-6.1); WHITE BLOOD COUNT 15.17 K/uL (4.8-10.8)
[2016-03-23 07:19] LABS: INR 1.1 (0.9-1.1); PARTIAL THROMBOPLASTIN RATIO 1.1; PROTHROMBIN TIME (PATIENT) 11.4 SECONDS (9.0-12.0)
[2016-03-23 07:24] LABS: AST/SGOT 10 U/L (15-37); BLOOD UREA NITROGEN 13 mg/dl (7-18); BUN/CREATININE RATIO 16.1 (10-20); CARBON DIOXIDE 24 mmol/L (21-32); CHLORIDE 107 mmol/L (98-107); CREATININE 0.81 mg/dl (0.60-1.40); GLUCOSE 133 mg/dl (70-99); POTASSIUM 4.3 mmol/L (3.5-5.1); SODIUM 141 mmol/L (136-145)
[2016-03-23 07:26] LABS: ALKALINE PHOSPHATASE 84 U/L (45-117); ALT/SGPT 28 U/L (12-78)
--- NOTE | 2016-03-23 10:11 | Medical Consult ---
Consultation Date of Consultation: Mar 23, 2016. Attending Physician: Estelle Mosqueda M.D. Reason for Consultation: Meningitis History of Present Illness 45-year-old previously healthy was admitted to the hospital with approximately 1 week of progressively worsening frontal headaches, up to 9/10 in intensity, associated with neck stiffness, photophobia, ocular tenderness, weakness, fatigue, and some mental confusion. He ultimately came to the emergency department where a lumbar puncture was performed showing a pleocytosis of 97, 100 percent mononuclear cells with mild increase in protein, no hypoglycorrhachia. Gram stain shows white cells but no organisms. Cultures are negative today. Patient feeling better today with headache now rated 2/10 in intensity. Patient states that he became ill around with flu- like illness, with recurrent symptoms around [place] time with sinus congestion and tenderness which has continued. He received courses of Augmentin and levofloxacin prior to his admission without improvement. Patient does have a history of genital herpes simplex infection. Has contact with multiple ill children and adolescent. No significant travel or other exposure history. Does have potential tick exposure. Past Medical/Surgical History Medical Problems: (1) Meningitis Status: Acute (2) Sinusitis Status: Acute Medical Problems: (1) Allergic rhinitis (2) Depression (3) History of URI (upper respiratory infection) (4) Low back pain (5) Seizure disorder (6) Sinusitis, acute maxillary Family History No pertinent family history Social History Smoking Status: Former Smoker Smokeless Tobacco Use: No Alcohol Use: none Drug Use: none Marital Status: Allergies Coded Allergies: No Known Allergies (Unverified , 03/22/16) Current Inpatient Medications Current Inpatient Medications Medications (Trade) Dose Ordered Sig/Nik Route Start Time Stop Time Status Last Admin Dose Admin Ioversol 125 ml 125 ml UD PRN IV 03/22/16 10:00 03/26/16 09:59 Potassium Chloride/Sodium Chloride (Nss + 20meq KCl 1000ml) 1,000 ml @ 100 mls/hr Q10H IV 03/22/16 17:15 04/21/16 15:05 03/23/16 03:25 100 MLS/HR Acetaminophen (Tylenol Tab) 650 mg Q4H PRN PO 03/22/16 15:15 04/21/16 15:14 Zolpidem Tartrate (Ambien Tab) 5 mg HSZ PRN PO 03/22/16 15:15 04/21/16 15:14 03/23/16 03:24 5 MG Cetirizine HCl (zyrTEC TAB) 10 mg DAILY PO 03/23/16 09:00 04/22/16 08:59 Citalopram Hydrobromide (celeXA TAB) 40 mg QPM PO 03/22/16 21:00 04/21/16 20:59 03/22/16 20:57 40 MG Oxcarbazepine (Trileptal Tab) 150 mg QPM PO 03/22/16 21:00 04/21/16 20:59 03/22/16 20:57 150 MG Oxcarbazepine (Trileptal Tab) 300 mg QAM PO 03/23/16 09:00 04/22/16 08:59 Oxycodone/ Acetaminophen (Percocet 5-325mg Tab) 1 tab Q6H PRN PO 03/22/16 15:15 04/05/16 15:14 Lorazepam (Ativan Inj) 0.5 mg Q4H PRN IV 03/22/16 15:15 04/21/16 15:14 Magnesium Hydroxide (Milk Of Magnesia Susp) 30 ml Q6H PRN PO 03/22/16 15:15 04/21/16 15:14 Diphenhydramine HCl (Benadryl Inj) 25 mg Q4H PRN IV 03/22/16 15:15 04/21/16 15:14 Al Hydrox/Mg Hydrox/ Simethicone 15 ml 15 ml Q4H PRN PO 03/22/16 15:15 04/21/16 15:14 Promethazine HCl/ Sodium Chloride (Phenergan Inj/ Nss 50ml) 50.5 ml @ 202 mls/hr Q4H PRN IV 03/22/16 15:15 04/21/16 15:14 Ondansetron HCl (Zofran Inj) 4 mg Q6H PRN IV 03/22/16 15:15 04/21/16 15:14 Morphine Sulfate (MoRPHine SULFATE INJ) 2 mg Q2H PRN IV 03/22/16 15:15 04/05/16 15:14 Morphine Sulfate 4 mg 4 mg Q2H PRN IV 03/22/16 15:15 2/19/17 15:14 03/22/16 22:53 4 MG Acetaminophen 100 ml @ 400 mls/hr Q8H PRN IV 03/22/16 15:15 04/21/16 15:14 03/22/16 17:18 400 MLS/HR Dexamethasone Sodium Phosphate/ Syringe (Decadron Inj/ Syringe) 1.5 ml @ 1 mls/min Q6H IV 03/22/16 18:00 04/21/16 17:59 03/23/16 06:23 1 MLS/MIN Vancomycin HCl 1 ea 1 ea UD PRN N/A 03/22/16 15:23 04/21/16 15:22 Ceftriaxone Sodium 2000 mg/ Dextrose 70 ml @ 100 mls/hr Q12H IV 03/23/16 02:00 04/01/16 15:14 03/23/16 03:08 100 MLS/HR Vancomycin HCl/ Sodium Chloride (Vancomycin Inj/ Nss 500ml) 534 ml @ 200 mls/hr Q8H IV 03/23/16 02:00 04/02/16 01:59 03/23/16 03:08 200 MLS/HR Review of Systems Constitutional: + fatigue, + fever, + weakness Eyes: No problem reported ENT: + nasal symptoms, + tinnitus Respiratory: + cough Cardiovascular: No problem reported Abdomen: No problem reported Musculoskeletal: No problem reported Genitourinary - Male: No problem reported Neurologic: No problem reported Psychiatric: No problem reported Endocrine: No problem reported Hematologic / Lymphatic: No problem reported Integumentary: No problem reported Allergic / Immunologic: No problem reported Physical Exam Date Time Temp Pulse Resp B/P Pulse Ox O2 Delivery O2 Flow Rate FiO2 03/23/16 07:28 36.4 72 18 118/66 94 Room Air 03/23/16 04:23 36.3 78 22 124/71 94 Room Air 03/23/16 00:00 Room Air CPAP 03/22/16 22:47 36.3 84 20 108/70 95 Room Air 03/22/16 20:17 36.2 86 20 117/72 92 Room Air 03/22/16 20:00 Room Air CPAP 03/22/16 16:37 36.4 74 18 124/74 93 Room Air 03/22/16 16:05 94 Room Air 03/22/16 15:09 72 18 115/66 94 Room Air 03/22/16 13:17 68 16 116/58 92 Room Air 03/22/16 11:44 69 18 119/71 94 Room Air 03/22/16 10:48 66 18 104/55 97 Room Air General Appearance: WD/WN, no apparent distress Head: normocephalic, atraumatic Eyes: normal inspection, EOMI, sclerae normal, + pertinent finding (Mild ocular tenderness) ENT: normal ENT inspection, pharynx normal Neck: supple, no adenopathy, thyroid normal, trachea midline Respiratory/Chest: chest non-tender, lungs clear, normal breath sounds, no respiratory distress Cardiovascular: regular rate, rhythm, no gallop, no murmur Abdomen/GI: normal bowel sounds, non tender, soft, no organomegaly Back: normal inspection, no CVA tenderness Extremities/Musculoskelatal: no calf tenderness, non-tender Neurologic/Psych: no motor/sensory deficits, alert, normal mood/affect, oriented x 3 Skin: normal color, warm/dry, + pertinent finding (Erythema and butterfly distribution on face) Lymphatic: no adenopathy Laboratory Results Date/Time Source Procedure Growth Status 03/22/16 13:35 Cerebral Spinal Fluid Gram Stain - Final Resulted 03/22/16 13:35 Cerebral Spinal Fluid CSF Culture Pending Resulted 03/23/16 00:00 Urine , Random Urine Culture Pending Received Last 24 Hours Test 03/22/16 10:25 03/22/16 13:35 03/23/16 00:00 03/23/16 06:30 White Blood Count 8.60 K/uL 15.17 K/uL Red Blood Count 5.58 M/uL 4.93 M/uL Hemoglobin 16.9 g/dL 14.2 g/dL Hematocrit 48.2 % 41.8 % Mean Corpuscular Volume 86.4 fL 84.8 fL Mean Corpuscular Hemoglobin 30.3 pg 28.8 pg Mean Corpuscular Hemoglobin Concent 35.1 g/dl 34.0 g/dl Platelet Count 275 K/uL 282 K/uL Mean Platelet Volume 9.5 fL 9.6 fL Neutrophils (%) (Auto) 71.0 % 89.4 % Lymphocytes (%) (Auto) 15.3 % 6.1 % Monocytes (%) (Auto) 7.8 % 4.1 % Eosinophils (%) (Auto) 4.9 % 0.1 % Basophils (%) (Auto) 0.5 % 0.0 % Neutrophils # (Auto) 6.11 K/uL 13.57 K/uL Lymphocytes # (Auto) 1.32 K/uL 0.93 K/uL Monocytes # (Auto) 0.67 K/uL 0.62 K/uL Eosinophils # (Auto) 0.42 K/uL 0.01 K/uL Basophils # (Auto) 0.04 K/uL 0.00 K/uL RDW Standard Deviation 39.7 fL 38.5 fL RDW Coefficient of Variation 12.5 % 12.4 % Immature Granulocyte % (Auto) 0.5 % 0.3 % Immature Granulocyte # (Auto) 0.04 K/uL 0.04 K/uL Erythrocyte Sedimentation Rate 17 mm/hr Sodium Level 140 mmol/L 141 mmol/L Potassium Level 4.2 mmol/L 4.3 mmol/L Chloride Level 103 mmol/L 107 mmol/L Carbon Dioxide Level 30 mmol/L 24 mmol/L Anion Gap 7.0 mmol/L 10.0 mmol/L Blood Urea Nitrogen 14 mg/dl 13 mg/dl Creatinine 0.98 mg/dl 0.81 mg/dl Est Creatinine Clear Calc Drug Dose 143.9 ml/min 177.3 ml/min Estimated GFR () 109.0 126.2 Estimated GFR (Non- 94.1 108.9 BUN/Creatinine Ratio 13.8 16.1 Random Glucose 91 mg/dl 133 mg/dl Calcium Level 8.9 mg/dl 8.0 mg/dl CSF Color COLORLESS CSF Appearance CLEAR CSF WBC 97 /uL CSF RBC 26 /uL CSF Polynuclear WBCs 0.0 % CSF Mononuclear WBCs 100.0 % CSF Xanthrochromic NO XANTHOCHROMIA CSF Cell Count Tube # 1 CSF Polynuclear WBCs (%) % CSF Chemistry Tube # 2 CSF Glucose 52 mg/dl CSF Total Protein 85.2 mg/dl Prothrombin Time 11.4 SECONDS Prothromb Time International Ratio 1.1 Activated Partial Thromboplast Time 28.8 SECONDS Partial Thromboplastin Ratio 1.1 Magnesium Level 2.0 mg/dl Total Bilirubin 0.4 mg/dl Direct Bilirubin < 0.1 mg/dl Aspartate Amino Transf (AST/SGOT) 10 U/L Alanine Aminotransferase (ALT/SGPT) 28 U/L Alkaline Phosphatase 84 U/L Total Protein 6.5 gm/dl Albumin 3.2 gm/dl Test 03/23/16 09:14 03/23/16 09:[address] DOSE: HISTORY: Headache Evaluate for hemorrhage or pathology TECHNIQUE: Multiaxial CT images of the head were performed without the use of intravenous contrast. Comparison: 01/08/2016 Findings: Opacified left maxillary sinus The calvarium and skull base are intact. The ventricles and sulci are within normal limits. There is no mass, hematoma, midline shift, or acute infarct. Impression: Opacified left maxillary sinus. Normal brain. Electronically signed by: Jae Calloway M.D. 03/22/2016 11:49 AM Dictated Date/Time: 03/22/2016 11:47 AM The statu Assessment & Plan Patient with evidence of meningitis, unlikely bacterial given rapid clinical improvement and lack of polynuclear pleocytosis. Differential diagnosis includes viral infections such as echo virus and Coxsackie virus, and herpes simplex needs to be considered given his history of HSV 2. Also to be considered is possible Lyme disease given potential for tick exposure. Less likely dealing with noninfectious process such as autoimmune/vasculitic process. For now, IV antibiotic should be continued, and I have added acyclovir to cover potential for HSV. I have ordered additional PCR studies for enteroviruses, Lyme, and HSV on CSF. Hopefully, IV antibiotics can be discontinued in the next 24-48 hours. will discuss with all involved, we will follow
[2016-03-23] MEDS: CETIRIZINE HCL 10 MG TAB PO SCH (10:21)
[2016-03-23] MEDS: OXCARBAZEPINE 150 MG TAB PO SCH ×2 (10:21→20:38)
--- NOTE | 2016-03-23 12:15 | Medical Student: [facility] ---
Med Student History & Physical Date & Time of Service: Mar 23, 2016 at 11:40 Chief Complaint: Meningitis Primary Care Physician: RV. Davila MD History of Present Illness Source: patient 45 y/o male hospital admission day one for meningitis currently states that his headache has improved overnight. Yesterday, he rated the CHAVARRIA as a 8-9 out of 10 and today he rates it as a 2-3 out of 10. Additionally, the patient reports that his tinnitus is still present, but improving. The patient also states that he is no longer having difficulty concentrating and trouble finding words. His neck remains slightly stiff. The patient admits to slight discomfort in his lower back around the area of where he had the LP. He denies fever/chills, nausea, vomiting, and rashes. Two weeks ago, the patient began having symptoms and was initially treated for a sinus infection with Augmentin for 10 days. He then went to the ED three days ago and was given Levaquin, which he took for one day before returning the to ED for worsening symptoms yesterday. 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 Past Medical/Surgical History Medical Problems: (1) Meningitis Status: Acute (2) Sinusitis Status: Acute 3. Chronic low back pain 4. Seizure Disorder 5. Depression Social History Smoking Status: Former Smoker Smokeless Tobacco Use: No Alcohol Use: none Drug Use: none Marital Status: Housing status: lives with family Allergies Coded Allergies: No Known Allergies (Unverified , 03/22/16) Medications Acetaminophen (Tylenol), 1,000 MG PO Q4 PRN for Pain Cetirizine (Zyrtec), 10 MG PO DAILY Citalopram Hydrobromide (Celexa), 40 MG PO QPM Fish Oil ([place]-3), 4 GM PO DAILY Glucosamine Sulfate (Glucosamine), 1,000 MG PO DAILY Levofloxacin (Levaquin), 500 MG PO DAILY Naproxen (Aleve), 440 MG PO DIRECTED Ondansetron Hcl (Zofran), 4 MG PO Q6H PRN for Nausea Oxcarbazepine (Trileptal), 150 MG PO QPM Oxcarbazepine (Trileptal), 300 MG PO QAM Oxycodone/Acetaminophen 5MG/325MG (Percocet 5MG/325MG), 1 TAB PO Q6H PRN for Pain Review of Systems Constitutional: No chills, No fever, No weakness, No weight loss Eyes: No discharge, No redness, No worsening of vision ENT: + nasal symptoms, + tinnitus, No sore throat Respiratory: No cough, No dyspnea at rest, No dyspnea on exertion, No shortness of breath, No wheezing Cardiovascular: No chest pain, No edema, No palpitations Abdomen: + constipation, No diarrhea, No nausea, No pain, No vomiting Musculoskeletal: No calf pain, No joint pain, No muscle pain, No swelling Neurologic: + memory loss (improving), No numbness/tingling, No vertigo, No weakness Integumentary: No itch, No new/changing skin lesions, No rash Physical Exam Vital Signs (24 Hours) Date Time Temp Pulse Resp B/P Pulse Ox O2 Delivery O2 Flow Rate FiO2 03/23/16 08:00 94 Room Air 03/23/16 07:28 36.4 72 18 118/66 94 Room Air 03/23/16 04:23 36.3 78 22 124/71 94 Room Air 03/23/16 00:00 Room Air CPAP 03/22/16 22:47 36.3 84 20 108/70 95 Room Air 03/22/16 20:17 36.2 86 20 117/72 92 Room Air 03/22/16 20:00 Room Air CPAP 03/22/16 16:37 36.4 74 18 124/74 93 Room Air 03/22/16 16:05 94 Room Air 03/22/16 15:09 72 18 115/66 94 Room Air 03/22/16 13:17 68 16 116/58 92 Room Air 03/22/16 11:44 69 18 119/71 94 Room Air General Appearance: WD/WN, no apparent distress Head: normocephalic, atraumatic Eyes: normal inspection, PERRL, EOMI ENT: normal ENT inspection, hearing grossly normal Respiratory/Chest: chest non-tender, lungs clear, normal breath sounds, no respiratory distress, no accessory muscle use Cardiovascular: regular rate, rhythm, no edema, no gallop, no murmur Abdomen/GI: normal bowel sounds, non tender, soft, no pulsatile mass Back: no CVA tenderness, + pertinent finding (small red area at site of lumbar puncture, no signs of drainage, no increased warmth) Extremities/Musculoskelatal: normal inspection, no calf tenderness, no pedal edema Neurologic/Psych: trouble 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-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 nml as tested, no motor/sensory deficits, alert, normal mood/affect, oriented x 3, + pertinent finding (cerebellar testing normal ) Skin: normal color, warm/dry, no rash Diagnostics Laboratory Results Results Past 24 Hours Test 03/22/16 13:35 03/23/16 06:30 Range/Units CSF Color COLORLESS CSF Appearance CLEAR CSF WBC 97 0-5 /uL CSF RBC 26 0 /uL CSF Polynuclear WBCs 0.0 % CSF Mononuclear WBCs 100.0 % CSF Xanthrochromic NO XANTHOCHROMIA CSF Cell Count Tube # 1 CSF Polynuclear WBCs (%) % CSF Chemistry Tube # 2 CSF Glucose 52 40-70 mg/dl CSF Total Protein 85.2 15.0-45.0 mg/dl White Blood Count 15.17 4.8-10.8 K/uL Red Blood Count 4.93 4.7-6.1 M/uL Hemoglobin 14.2 14.0-18.0 g/dL Hematocrit 41.8 42-52 % Mean Corpuscular Volume 84.8 80-100 fL Mean Corpuscular Hemoglobin 28.8 25-34 pg Mean Corpuscular Hemoglobin Concent 34.0 32-36 g/dl Platelet Count 282 130-400 K/uL Mean Platelet Volume 9.6 7.4-10.4 fL Neutrophils (%) (Auto) 89.4 % Lymphocytes (%) (Auto) 6.1 % Monocytes (%) (Auto) 4.1 % Eosinophils (%) (Auto) 0.1 % Basophils (%) (Auto) 0.0 % Neutrophils # (Auto) 13.57 1.4-6.5 K/uL Lymphocytes # (Auto) 0.93 1.2-3.4 K/uL Monocytes # (Auto) 0.62 0.11-0.59 K/uL Eosinophils # (Auto) 0.01 0-0.5 K/uL Basophils # (Auto) 0.00 0-0.2 K/uL RDW Standard Deviation 38.5 36.4-46.3 fL RDW Coefficient of Variation 12.4 11.5-14.5 % Immature Granulocyte % (Auto) 0.3 % Immature Granulocyte # (Auto) 0.04 0.00-0.02 K/uL Prothrombin Time 11.4 9.0-12.0 SECONDS Prothromb Time International Ratio 1.1 0.9-1.1 Activated Partial Thromboplast Time 28.8 21.0-31.0 SECONDS Partial Thromboplastin Ratio 1.1 Sodium Level 141 136-145 mmol/L Potassium Level 4.3 3.5-5.1 mmol/L Chloride Level 107 98-107 mmol/L Carbon Dioxide Level 24 21-32 mmol/L Anion Gap 10.0 3-11 mmol/L Blood Urea Nitrogen 13 7-18 mg/dl Creatinine 0.81 0.60-1.40 mg/dl Est Creatinine Clear Calc Drug Dose 177.3 ml/min Estimated GFR () 126.2 Estimated GFR (Non- 108.9 BUN/Creatinine Ratio 16.1 10-20 Random Glucose 133 70-99 mg/dl Calcium Level 8.0 8.5-10.1 mg/dl Magnesium Level 2.0 1.8-2.4 mg/dl Total Bilirubin 0.4 0.2-1 mg/dl Direct Bilirubin < 0.1 0-0.2 mg/dl Aspartate Amino Transf (AST/SGOT) 10 15-37 U/L Alanine Aminotransferase (ALT/SGPT) 28 12-78 U/L Alkaline Phosphatase 84 45-117 U/L Total Protein 6.5 6.4-8.2 gm/dl Albumin 3.2 3.4-5.0 gm/dl Microbiology Results 03/22/16 Gram Stain - Final, Resulted 03/22/16 CSF Culture - Preliminary, Resulted NO GROWTH TO DATE. Diagnostic Radiology CTA BRAIN IMPRESSION: Normal study. Opacification left maxillary sinus is again noted. HEAD CT Impression: Opacified left maxillary sinus. Normal brain. Normal EKG Impression Assessment and Plan 45y/o male hospital admission day one for meningitis. The patient's CSF is clear with no xanthochromia with a WBC of 97. Given these values, the meningitis is likely viral in nature. However, the patient was on augmentin for ten days and levaquin for one day prior to the lumbar puncture. Antibiotics can cause the WBC of the CSF to not be accurate in its representation, therefore, a bacterial source for the infection is not ruled out. Gram stain of CSF was negative and final cultures is preliminarily showing no growth. The patient has a history of work exposure to infectious substances such as saliva. Also of note , the patient has been treated for a sinus infection and his head CT showed an opacified maxillary sinus. It is possible a sinus infection to have spread from the sinus to the brain. Will wait for the final reading of the CSF culture. 1. Meningitis, uncertain etiology- Gram stain negative and CSF preliminarily showing no growth. Continue to treat with Ceftriaxone Q12H IV 70ml and 100mls/ hr and Vancomycin 534ml at 200 mls.hour Q8Hr IV until the results of the CSF culture are final. Administer Dexamethasone Sodium Phosphate 1.5ml and 1mls/min Q6H IV. Administer Potassium Chloride IV. Morphine Sulfate 4mg IV PRN for pain control. Continue to monitor vital signs and CBC, looking for the potential of worsening infection. CSF serology pending. 2. Seizure Disorder- Administer Oxcarbazepine 300mg PO QAM. 3. Depression- Administer Citalopram Hydrobromide 40mg QPM PO. 4. Chronic back pain- Administer Oxycodone/Acetaminophen 1 tab PO PRN for pain. 5. Allergic Rhinitis- Administer 10mg PO daily. Advanced Directives Existing Advance Directive: No Existing Living Will: No Existing Power of Real Estate Agent/Broker: No
--- NOTE | 2016-03-23 13:38 | Family Medicine Progress Note ---
Progress Note Date of Service Mar 23, 2016. Subjective Pt evaluation today including: conversation w/ patient, physical exam Vasquez reports his headache has improved today. 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 Reports his symptoms have been on and off since . He had sinus congestion and increased drainage that went away after and returned around [place]. He then had about 2 weeks of symptoms, then went to see his PCP and had a 10 day course of Augmentin for sinusitis. The course of these Abx finished last Wednesday. He had persistent symptoms so he then went to the ED three days ago and was given Levaquin, which he took for one day before returning the to ED for worsening symptoms yesterday. Currently, he feels really well. He is sitting reading articles on his laptop, and is eager to get back to work. Reports current headache 2/10 severity. Constitutional: No chills, No fever, No sweats, No weakness, No weight loss Eyes: No worsening of vision ENT: + tinnitus, No dental problems, No hearing loss, No nasal symptoms, No sore throat, No unusual epistaxis Respiratory: No cough, No shortness of breath, No sputum, No wheezing Cardiovascular: No chest pain Abdomen: No pain Musculoskeletal: No joint pain Male : No dysuria Neurologic: No memory loss Psychiatric: No depression symptoms Endo: No fatigue All Other Systems: Reviewed and Negative Medications Current Inpatient Medications Medications (Trade) Dose Ordered Sig/Nik Route Start Time Stop Time Status Last Admin Dose Admin Ioversol 125 ml 125 ml UD PRN IV 03/22/16 10:00 03/26/16 09:59 Potassium Chloride/Sodium Chloride (Nss + 20meq KCl 1000ml) 1,000 ml @ 100 mls/hr Q10H IV 03/22/16 17:15 04/21/16 15:05 03/23/16 03:25 100 MLS/HR Acetaminophen (Tylenol Tab) 650 mg Q4H PRN PO 03/22/16 15:15 04/21/16 15:14 Zolpidem Tartrate (Ambien Tab) 5 mg HSZ PRN PO 03/22/16 15:15 04/21/16 15:14 03/23/16 03:24 5 MG Cetirizine HCl (zyrTEC TAB) 10 mg DAILY PO 03/23/16 09:00 04/22/16 08:59 03/23/16 10:21 10 MG Citalopram Hydrobromide (celeXA TAB) 40 mg QPM PO 03/22/16 21:00 04/21/16 20:59 03/22/16 20:57 40 MG Oxcarbazepine (Trileptal Tab) 150 mg QPM PO 03/22/16 21:00 04/21/16 20:59 03/22/16 20:57 150 MG Oxcarbazepine (Trileptal Tab) 300 mg QAM PO 03/23/16 09:00 04/22/16 08:59 03/23/16 10:21 300 MG Oxycodone/ Acetaminophen (Percocet 5-325mg Tab) 1 tab Q6H PRN PO 03/22/16 15:15 04/05/16 15:14 Lorazepam (Ativan Inj) 0.5 mg Q4H PRN IV 03/22/16 15:15 04/21/16 15:14 Magnesium Hydroxide (Milk Of Magnesia Susp) 30 ml Q6H PRN PO 03/22/16 15:15 04/21/16 15:14 Diphenhydramine HCl (Benadryl Inj) 25 mg Q4H PRN IV 03/22/16 15:15 04/21/16 15:14 Al Hydrox/Mg Hydrox/ Simethicone 15 ml 15 ml Q4H PRN PO 03/22/16 15:15 04/21/16 15:14 Promethazine HCl/ Sodium Chloride (Phenergan Inj/ Nss 50ml) 50.5 ml @ 202 mls/hr Q4H PRN IV 03/22/16 15:15 04/21/16 15:14 Ondansetron HCl (Zofran Inj) 4 mg Q6H PRN IV 03/22/16 15:15 04/21/16 15:14 Morphine Sulfate (MoRPHine SULFATE INJ) 2 mg Q2H PRN IV 03/22/16 15:15 04/05/16 15:14 03/23/16 12:36 2 MG Morphine Sulfate 4 mg 4 mg Q2H PRN IV 03/22/16 15:15 04/05/16 15:14 03/22/16 22:53 4 MG Acetaminophen 100 ml @ 400 mls/hr Q8H PRN IV 03/22/16 15:15 04/21/16 15:14 03/22/16 17:18 400 MLS/HR Dexamethasone Sodium Phosphate/ Syringe (Decadron Inj/ Syringe) 1.5 ml @ 1 mls/min Q6H IV 03/22/16 18:00 04/21/16 17:59 03/23/16 12:35 1 MLS/MIN Vancomycin HCl 1 ea 1 ea UD PRN N/A 03/22/16 15:23 04/21/16 15:22 Ceftriaxone Sodium 2000 mg/ Dextrose 70 ml @ 100 mls/hr Q12H IV 03/23/16 02:00 04/01/16 15:14 03/23/16 03:08 100 MLS/HR Vancomycin HCl/ Sodium Chloride (Vancomycin Inj/ Nss 500ml) 534 ml @ 200 mls/hr Q8H IV 03/23/16 02:00 04/02/16 01:59 03/23/16 10:21 200 MLS/HR Objective Vital Signs Date Time Temp Pulse Resp B/P Pulse Ox O2 Delivery O2 Flow Rate FiO2 03/23/16 12:27 36.4 82 16 131/73 93 Room Air 03/23/16 12:00 93 Room Air 03/23/16 08:00 94 Room Air 03/23/16 07:28 36.4 72 18 118/66 94 Room Air 03/23/16 04:23 36.3 78 22 124/71 94 Room Air 03/23/16 00:00 Room Air CPAP 03/22/16 22:47 36.3 84 20 108/70 95 Room Air 03/22/16 20:17 36.2 86 20 117/72 92 Room Air 03/22/16 20:00 Room Air CPAP 03/22/16 16:37 36.4 74 18 124/74 93 Room Air 03/22/16 16:05 94 Room Air 03/22/16 15:09 72 18 115/66 94 Room Air Physical Exam General Appearance: WD/WN, no apparent distress Eyes: normal inspection, PERRL ENT: hearing grossly normal Neck: supple, no JVD Respiratory/Chest: lungs clear, normal breath sounds, no respiratory distress Cardiovascular: regular rate, rhythm, no murmur Abdomen: normal bowel sounds, non tender, soft Extremities: non-tender, normal inspection, no pedal edema Neurologic/Psychiatric: natural resource 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 nml as tested, no motor/sensory deficits, alert, normal mood/affect, oriented x 3 Skin: no rash Laboratory Results Last 24 Hours Test 03/22/16 13:35 03/23/16 06:30 CSF Color COLORLESS CSF Appearance CLEAR CSF WBC 97 /uL CSF RBC 26 /uL CSF Polynuclear WBCs 0.0 % CSF Mononuclear WBCs 100.0 % CSF Xanthrochromic NO XANTHOCHROMIA CSF Cell Count Tube # 1 CSF Polynuclear WBCs (%) % CSF Chemistry Tube # 2 CSF Glucose 52 mg/dl CSF Total Protein 85.2 mg/dl White Blood Count 15.17 K/uL Red Blood Count 4.93 M/uL Hemoglobin 14.2 g/dL Hematocrit 41.8 % Mean Corpuscular Volume 84.8 fL Mean Corpuscular Hemoglobin 28.8 pg Mean Corpuscular Hemoglobin Concent 34.0 g/dl Platelet Count 282 K/uL Mean Platelet Volume 9.6 fL Neutrophils (%) (Auto) 89.4 % Lymphocytes (%) (Auto) 6.1 % Monocytes (%) (Auto) 4.1 % Eosinophils (%) (Auto) 0.1 % Basophils (%) (Auto) 0.0 % Neutrophils # (Auto) 13.57 K/uL Lymphocytes # (Auto) 0.93 K/uL Monocytes # (Auto) 0.62 K/uL Eosinophils # (Auto) 0.01 K/uL Basophils # (Auto) 0.00 K/uL RDW Standard Deviation 38.5 fL RDW Coefficient of Variation 12.4 % Immature Granulocyte % (Auto) 0.3 % Immature Granulocyte # (Auto) 0.04 K/uL Prothrombin Time 11.4 SECONDS Prothromb Time International Ratio 1.1 Activated Partial Thromboplast Time 28.8 SECONDS Partial Thromboplastin Ratio 1.1 Sodium Level 141 mmol/L Potassium Level 4.3 mmol/L Chloride Level 107 mmol/L Carbon Dioxide Level 24 mmol/L Anion Gap 10.0 mmol/L Blood Urea Nitrogen 13 mg/dl Creatinine 0.81 mg/dl Est Creatinine Clear Calc Drug Dose 177.3 ml/min Estimated GFR () 126.2 Estimated GFR (Non- 108.9 BUN/Creatinine Ratio 16.1 Random Glucose 133 mg/dl Calcium Level 8.0 mg/dl Magnesium Level 2.0 mg/dl Total Bilirubin 0.4 mg/dl Direct Bilirubin < 0.1 mg/dl Aspartate Amino Transf (AST/SGOT) 10 U/L Alanine Aminotransferase (ALT/SGPT) 28 U/L Alkaline Phosphatase 84 U/L Total Protein 6.5 gm/dl Albumin 3.2 gm/dl Assessment and Plan 45 yo male with recent history of sinusitis, opacification of L maxillary sinus on CT, admitted for meningitis - likely viral. With recent long antibiotic exposure would consider bacterial but he looks well. Meningitis, uncertain etiology - Awaiting CSF culture - Will consult Infectious Diseases - Continue with Ceftriaxone, Vancomycin, (& now Acyclovir) - Continue Dexamethasone q8h - Continue Morphine for pain Seizure disorder - Continue Oxcarbazepine 300mg PO QAM Depression - Continue Citalopram 40mg qPM Chronic back pain - Continue Oxycodone/Acetaminophen Left maxillary sinusitis - Will consider getting ENT consult if symptoms worsen - Will need ENT follow up for repeat CT in 1-2 weeks VTE: EARLY AMBULATION/SCDs CODE STATUS: FULL DISPO: MED/SURG, with droplet precautions Resident Tracking Resident Involvement: Resident Care Provided Care Provided: Adult Hospital Medicine Reviewed: Pt Seen/Exam by Me History feeling very well today headache 3-05/25. much improved since admission Constitutional: denies: fever Respiratory: negative: cough, short of breath Cardiovascular: denies chest pain General Appearance: no apparent distress Respiratory: lungs clear, no respiratory distress Cardiovascular: regular rate, rhythm Neurologic/Psychiatric: no motor/sensory deficits, alert, normal mood/affect, oriented x 3 Skin Characteristics: warm/dry Assessment/Plan I have reviewed the medical record and performed a history and physical examination of this patient today. I have discussed the case with Dr. Moore. The above note reflects my findings, conclusions, and recommendations.
[2016-03-23 16:54] LABS: INFLUENZA A PCR Neg for Influ A (NEG); INFLUENZA B PCR Neg for Influ B (NEG)
[2016-03-23] MEDS ORDERED: VANCOMYCIN TROUGH SCH ×2 (17:30→19:30)
--- NOTE | 2016-03-23 18:44 | Pharmacy Progress Note ---
Pharmacy Antibiotic Prog Note Date of Service: Mar 23, 2016. Subjective: The patient is currently receiving vancomycin 1700 mg IV every 8 hours (12.3 mg/kg/dose). The patient is currently on day # 2 of IV therapy. Objective: Height (Feet): 6 Height (Inches): 2.00 Weight (Kilograms): 143.100 Lab Results (24hrs): Laboratory Tests Test 03/23/16 06:30 BUN/Creatinine Ratio 16.1 Blood Urea Nitrogen 13 mg/dl Creatinine 0.81 mg/dl White Blood Count 15.17 K/uL Red Blood Count 4.93 M/uL Hemoglobin 14.2 g/dL Hematocrit 41.8 % Mean Corpuscular Volume 84.8 fL Mean Corpuscular Hemoglobin 28.8 pg Mean Corpuscular Hemoglobin Concent 34.0 g/dl Platelet Count 282 K/uL Mean Platelet Volume 9.6 fL Neutrophils (%) (Auto) 89.4 % Lymphocytes (%) (Auto) 6.1 % Monocytes (%) (Auto) 4.1 % Eosinophils (%) (Auto) 0.1 % Basophils (%) (Auto) 0.0 % Neutrophils # (Auto) 13.57 K/uL Lymphocytes # (Auto) 0.93 K/uL Monocytes # (Auto) 0.62 K/uL Eosinophils # (Auto) 0.01 K/uL Basophils # (Auto) 0.00 K/uL Micro Results: RUN DATE: 03/23/16 [facility] LAB PAGE 1 RUN TIME: 1128 Specimen Inquiry PATIENT: ZOE REYNAGA LOC: [facility] # : [id number] AGE/SX: 45/M ROOM: 79 REG : 03/22/[address]: Estelle Mosqueda M.D. : 1970 BED: 1 DIS : STATUS: ADM IN TLOC: SPEC #: [id number] CHELY: 03/22/169 STATUS: RES REQ #: [id number] RECD: 03/22/16[facility] DR: Armando Sandhu M.D. SOURCE: CSF ENTR: 03/22/16-[address] [facility] [address]: RV. Natasha, SPDESC: ORDERED: CSF CULT/SMR COMMENTS: Comments to Development Officer TUBE # 3 TUBE # TO USE FOR SPINAL FLUID CELL CULTURE= 3 Procedure Result Verified Site GRAM STAIN Final 03/22/164720 RESULT MANY WBCs SEEN NO ORGANISMS SEEN CSF CULTURE Preliminary 03/23/16-1128 NO GROWTH TO DATE. Recent Pertinent Medications: Item Value Date Time Ceftriaxone 70 ml @ 100 mls/hr 03/23/16 0200 Sodium 2000 mg/ Q12H/IV 03/23/16 1428 Dextrose Assessment & Plan: Mr Reynaga is a 45 year old male who was admitted was suspected meningitis. He is improving rapidly and has few headaches. This drug level is: Subtherapeutic Change to vancomycin 2150 mg IV every 8 hours. I believe that due to the patient's body habitus, he will slightly accumulate (~20%) with an ultimate trough around 12.5 mcg/mL. Therefore a dose increase of ~25% is warranted. I increased the dose to 15 mg/kg to accommodate this. I am not comfortable with decreasing the dosing interval to q6H in an individual with a high BMI like his. I believe this should produce therapeutic levels for meningitis. Goal peak level estimate: between 35 - 40 mcg/mL. Goal trough level estimate: between 15 - 20 mcg/mL. (indication meningitis) Trough has been ordered for: prior to 2000 dose. Pharmacy will continue to follow and will adjust dose/frequency as necessary. Thank you
[2016-03-23] MEDS: VANCOMYCIN INJ 2,150 MG in SODIUM CHLORIDE 0.9% 500ML 500 ML IV SCH (19:37)
[2016-03-23] MEDS: CITALOPRAM 40 MG TAB PO SCH (20:37)
[2016-03-24] MEDS: NSS + 20MEQ KCL 1000ML 1,000 ML IV SCH ×2 (00:04→09:47)
[2016-03-24] MEDS: DEXAMETHASONE INJ 6 MG in SYRINGE 0 ML IV SCH ×3 (00:07→12:00)
[2016-03-24 00:11] VITALS: BP 127/77; PULSE 67; TEMP 36.4; O2SAT 91
[2016-03-24] MEDS: CEFTRIAXONE SOD INJ 2,000 MG in DEXTROSE 5% 50ML 50 ML IV SCH ×2 (04:00→14:00)
[2016-03-24] MEDS: VANCOMYCIN INJ 2,150 MG in SODIUM CHLORIDE 0.9% 500ML 500 ML IV SCH ×2 (04:30→12:00)
[2016-03-24 04:56] VITALS: BP 122/72; PULSE 65; TEMP 36.2; O2SAT 95
[2016-03-24 07:42] VITALS: BP 131/77; PULSE 67; TEMP 36.6; O2SAT 95
[2016-03-24 07:49] LABS: BASO % 0.1 %; BASO ABS # 0.01 K/uL (0-0.2); COMPLETE YES; HEMATOCRIT 42.7 % (42-52); IG% 0.5 %; LYMPH ABS # 0.91 K/uL (1.2-3.4); MEAN CELL VOLUME 84.4 fL (80-100); MEAN CORPUSCULAR HEMOGLOBIN 28.9 pg (25-34); MEAN CORPUSCULAR HGB CONC 34.2 g/dl (32-36); MONO % 3.2 %; NEUT % 90.2 %; PLATELET COUNT 294 K/uL (130-400); RED BLOOD COUNT 5.06 M/uL (4.7-6.1); WHITE BLOOD COUNT 15.08 K/uL (4.8-10.8)
[2016-03-24 08:03] LABS: PROTHROMBIN TIME (PATIENT) 11.2 SECONDS (9.0-12.0)
[2016-03-24 08:09] LABS: ALT/SGPT 28 U/L (12-78); BLOOD UREA NITROGEN 14 mg/dl (7-18); BUN/CREATININE RATIO 19.7 (10-20); CALCIUM 8.4 mg/dl (8.5-10.1); CARBON DIOXIDE 21 mmol/L (21-32); CHLORIDE 105 mmol/L (98-107); CREATININE 0.73 mg/dl (0.60-1.40); GLUCOSE 112 mg/dl (70-99); MAGNESIUM 2.1 mg/dl (1.8-2.4); POTASSIUM 3.8 mmol/L (3.5-5.1); SODIUM 138 mmol/L (136-145)
[2016-03-24 08:12] LABS: ALKALINE PHOSPHATASE 89 U/L (45-117); AST/SGOT 11 U/L (15-37)
--- NOTE | 2016-03-24 09:44 | Infectious Disease Progress Nt ---
Progress Note Date of Service Mar 24, 2016. Subjective Pt evaluation today including: conversation w/ patient, conversation w/ family , physical exam, chart review, lab review, review of studies, conversation w/ data governance consultant, review of inpatient medication list Patient much improved today. Headache almost gone, no neck stiffness, no photophobia. Had large amount of purulent discharge from his nose last night, very foul smelling. CSF cultures remain negative. For some reason, Lyme serology canceled, has been reordered. Other studies are pending. All Other Systems: Reviewed and Negative Medications Current Inpatient Medications Medications (Trade) Dose Ordered Sig/Nik Route Start Time Stop Time Status Last Admin Dose Admin Ioversol 125 ml 125 ml UD PRN IV 03/22/16 10:00 03/26/16 09:59 Potassium Chloride/Sodium Chloride (Nss + 20meq KCl 1000ml) 1,000 ml @ 100 mls/hr Q10H IV 03/22/16 17:15 04/21/16 15:05 03/24/16 00:04 100 MLS/HR Acetaminophen (Tylenol Tab) 650 mg Q4H PRN PO 03/22/16 15:15 04/21/16 15:14 Zolpidem Tartrate (Ambien Tab) 5 mg HSZ PRN PO 03/22/16 15:15 04/21/16 15:14 03/23/16 03:24 5 MG Cetirizine HCl (zyrTEC TAB) 10 mg DAILY PO 03/23/16 09:00 04/22/16 08:59 03/23/16 10:21 10 MG Citalopram Hydrobromide (celeXA TAB) 40 mg QPM PO 03/22/16 21:00 04/21/16 20:59 03/23/16 20:37 40 MG Oxcarbazepine (Trileptal Tab) 150 mg QPM PO 03/22/16 21:00 04/21/16 20:59 03/23/16 20:38 150 MG Oxcarbazepine (Trileptal Tab) 300 mg QAM PO 03/23/16 09:00 04/22/16 08:59 03/23/16 10:21 300 MG Oxycodone/ Acetaminophen (Percocet 5-325mg Tab) 1 tab Q6H PRN PO 03/22/16 15:15 04/05/16 15:14 Lorazepam (Ativan Inj) 0.5 mg Q4H PRN IV 03/22/16 15:15 04/21/16 15:14 03/23/16 20:39 0.5 MG Magnesium Hydroxide (Milk Of Magnesia Susp) 30 ml Q6H PRN PO 03/22/16 15:15 04/21/16 15:14 Diphenhydramine HCl (Benadryl Inj) 25 mg Q4H PRN IV 03/22/16 15:15 04/21/16 15:14 Al Hydrox/Mg Hydrox/ Simethicone 15 ml 15 ml Q4H PRN PO 03/22/16 15:15 04/21/16 15:14 Promethazine HCl/ Sodium Chloride (Phenergan Inj/ Nss 50ml) 50.5 ml @ 202 mls/hr Q4H PRN IV 03/22/16 15:15 04/21/16 15:14 Ondansetron HCl (Zofran Inj) 4 mg Q6H PRN IV 03/22/16 15:15 04/21/16 15:14 Morphine Sulfate (MoRPHine SULFATE INJ) 2 mg Q2H PRN IV 03/22/16 15:15 04/05/16 15:14 03/23/16 12:36 2 MG Morphine Sulfate 4 mg 4 mg Q2H PRN IV 03/22/16 15:15 04/05/16 15:14 03/22/16 22:53 4 MG Acetaminophen 100 ml @ 400 mls/hr Q8H PRN IV 03/22/16 15:15 04/21/16 15:14 03/22/16 17:18 400 MLS/HR Dexamethasone Sodium Phosphate/ Syringe (Decadron Inj/ Syringe) 1.5 ml @ 1 mls/min Q6H IV 03/22/16 18:00 04/21/16 17:59 03/24/16 05:29 1 MLS/MIN Vancomycin HCl 1 ea 1 ea UD PRN N/A 03/22/16 15:23 04/21/16 15:22 Ceftriaxone Sodium 2000 mg/ Dextrose 70 ml @ 100 mls/hr Q12H IV 03/23/16 02:00 04/01/16 15:14 03/24/16 04:00 100 MLS/HR Vancomycin HCl/ Sodium Chloride (Vancomycin Inj/ Nss 500ml) 543 ml @ 200 mls/hr Q8H IV 03/23/16 20:00 04/01/16 19:59 03/24/16 04:30 200 MLS/HR Objective Vital Signs Date Time Temp Pulse Resp B/P Pulse Ox O2 Delivery O2 Flow Rate FiO2 03/24/16 07:42 36.6 67 16 131/77 95 Room Air 03/24/16 04:56 36.2 65 16 122/72 95 Room Air BiPAP 03/24/16 04:00 Room Air CPAP 03/24/16 00:11 36.4 67 16 127/77 91 Room Air 03/24/16 00:00 Room Air CPAP 03/23/16 20:08 36.5 75 16 139/77 93 Room Air 03/23/16 20:00 93 Room Air CPAP 03/23/16 16:10 36.2 70 19 117/71 94 Room Air 03/23/16 16:00 93 Room Air CPAP 03/23/16 12:27 36.4 82 16 131/73 93 Room Air 03/23/16 12:00 93 Room Air Physical Exam General Appearance: WD/WN, no apparent distress Eyes: normal inspection, EOMI, sclerae normal ENT: normal ENT inspection, hearing grossly normal, pharynx normal Neck: supple, no adenopathy, trachea midline Respiratory/Chest: chest non-tender, lungs clear, normal breath sounds, no respiratory distress Cardiovascular: regular rate, rhythm, no gallop, no murmur Abdomen: normal bowel sounds, non tender, soft, no organomegaly Extremities: non-tender, no calf tenderness Neurologic/Psychiatric: no motor/sensory deficits, alert, normal mood/affect, oriented x 3 Skin: normal color, no rash Lymphatic: no adenopathy Laboratory Results Last 24 Hours Test 03/23/16 14:35 03/23/16 17:25 03/24/16 06:24 03/24/16 09:18 Influenza Type A (RT-PCR) Neg for Influ A Influenza Type B (RT-PCR) Neg for Influ B Vancomycin Level Trough 10.8 mcg/ml White Blood Count 15.08 K/uL Red Blood Count 5.06 M/uL Hemoglobin 14.6 g/dL Hematocrit 42.7 % Mean Corpuscular Volume 84.4 fL Mean Corpuscular Hemoglobin 28.9 pg Mean Corpuscular Hemoglobin Concent 34.2 g/dl Platelet Count 294 K/uL Mean Platelet Volume 10.0 fL Neutrophils (%) (Auto) 90.2 % Lymphocytes (%) (Auto) 6.0 % Monocytes (%) (Auto) 3.2 % Eosinophils (%) (Auto) 0.0 % Basophils (%) (Auto) 0.1 % Neutrophils # (Auto) 13.60 K/uL Lymphocytes # (Auto) 0.91 K/uL Monocytes # (Auto) 0.49 K/uL Eosinophils # (Auto) 0.00 K/uL Basophils # (Auto) 0.01 K/uL RDW Standard Deviation 38.7 fL RDW Coefficient of Variation 12.7 % Immature Granulocyte % (Auto) 0.5 % Immature Granulocyte # (Auto) 0.07 K/uL Prothrombin Time 11.2 SECONDS Prothromb Time International Ratio 1.0 Activated Partial Thromboplast Time 27.2 SECONDS Partial Thromboplastin Ratio 1.0 Sodium Level 138 mmol/L Potassium Level 3.8 mmol/L Chloride Level 105 mmol/L Carbon Dioxide Level 21 mmol/L Anion Gap 12.0 mmol/L Blood Urea Nitrogen 14 mg/dl Creatinine 0.73 mg/dl Est Creatinine Clear Calc Drug Dose 196.3 ml/min Estimated GFR () 131.7 Estimated GFR (Non- 113.6 BUN/Creatinine Ratio 19.7 Random Glucose 112 mg/dl Calcium Level 8.4 mg/dl Magnesium Level 2.1 mg/dl Total Bilirubin 0.6 mg/dl Direct Bilirubin < 0.1 mg/dl Aspartate Amino Transf (AST/SGOT) 11 U/L Alanine Aminotransferase (ALT/SGPT) 28 U/L Alkaline Phosphatase 89 U/L Total Protein 7.2 gm/dl Albumin 3.4 gm/dl RUN DATE: 03/23/16 [facility] LAB PAGE 1 RUN TIME: 1128 Specimen Inquiry PATIENT: ZOE RAMIREZ LOC: [facility] # : [id number] AGE/SX: 45/M ROOM: [facility] REG : 03/22/[address]: Estelle Mosqueda M.D. : 1970 BED: 1 DIS : STATUS: ADM IN TLOC: SPEC #: [id number] CHELY: 03/22/168 STATUS: RES REQ #: [id number] RECD: 03/22/16-[address]: Armando Sandhu M.D. SOURCE: CSF ENTR: 03/22/16-[address]: RV. Natasha, SPDESC: ORDERED: CSF CULT/SMR COMMENTS: Comments to Dispatcher Street Department TUBE # 3 TUBE # TO USE FOR SPINAL FLUID CELL CULTURE= 3 Procedure Result Verified Site GRAM STAIN Final 03/22/16-1434 RESULT MANY WBCs SEEN NO ORGANISMS SEEN CSF CULTURE Preliminary 03/23/16 NO GROWTH TO DATE. Assessment and Plan Patient with evidence of meningitis, unlikely bacterial given rapid clinical improvement and lack of polynuclear pleocytosis. With suspect this is not herpes simplex associated given rapid clinical improvement without specific therapy. Most likely enteroviral infection, studies are pending. Lyme disease less likely, serology should be available later today. Would think the patient could be discharged home, but would await results of Lyme serology as if positive would continue ceftriaxone pending Western blot confirmation and PCR study.Patient should continue on his levofloxacin that he has at home for his chronic sinus infection. Will discuss.
[2016-03-24] MEDS: CETIRIZINE HCL 10 MG TAB PO SCH (09:46)
[2016-03-24] MEDS: OXCARBAZEPINE 150 MG TAB PO SCH (09:47)
[2016-03-24 11:19] VITALS: BP 142/72; PULSE 87; TEMP 36.3; O2SAT 94
[2016-03-24 14:03] LABS: LYME DISEASE AB IGG NEG (NEG)
[2016-03-24 14:04] LABS: LYME DISEASE AB IGM NEG (NEG)
--- NOTE | 2016-03-24 14:50 | Discharge Instructions ---
Discharge Instructions Admission Reason for Admission: Meningitis Discharge Discharge Diagnosis / Problem: Meningitis Discharge Goals Goal(s): Improve disease control Activity Recommendations Activity Limitations: per Instructions/Follow-up section . Instructions / Follow-Up Instructions / Follow-Up Vasquez was admitted for meningitis. Follow up: - PCP within 1 week - Dr Anand from ENT for evaluation of left sided chronic sinusitis. - Continue taking Levaquin for the next 8 days. If you feel your sinus symptoms worsen or have not improved by the end of taking these antibiotics please see your PCP again. Current Hospital Diet Patient's current hospital diet: Regular Diet Discharge Diet Recommended Diet: Regular Diet Pending Studies Studies pending at discharge: no Work Instructions Additional Instructions: PLEASE EXCUSE VASQUEZ FROM Wednesday03/19/16 AND Wednesday03/20/16, HE WAS AT THE HOSPITAL THEN DISCHARGED HOME. HE RE-ADMITTED TO THE HOSPITAL Wednesday03/22/16 AND SHOULD REMAIN OFF WORK FOR THE NEXT 4 DAYS OR UNTIL OTHERWISE CLEARED BY HIS PCP. Medical Emergencies . Who to Call and When: Medical Emergencies: If at any time you feel your situation is an emergency, please call 911 immediately. . Non-Emergent Contact Non-Emergency issues call your: Primary Care Provider . . "Provider Documentation" section prepared by Kristin Moore. VTE Core Measure Inpt VTE Proph given/why not?: Enoxaparin (Lovenox)SQ, SCD's
[2016-03-24 15:08] VITALS: BP 135/74; PULSE 82; TEMP 36.8; O2SAT 98
--- NOTE | 2016-03-24 15:22 | Medical Student: [facility] ---
Discharge Summary Admission Date: Mar 22, 2016 at 15:06 Discharge Date: Mar 24, 2016 Discharge Disposition: Home Principal Diagnosis: Viral Meningitis Procedures: Lumbar Puncture performed 03/22/16 CSF was clear colorless with no xanthochromia CSF WBC: 97 CSF RBC: 28 CSF GLUCOSE: 52 TOTAL PROTEIN: 85.2 LYME DISEASE IgG and IgM antibodies- negative CSF Culture: No Growth Gram stain- no organisms seen CT brain angiogram HEAD ANGIO WITH CONTRAST 03/22/2016 11:51 AM IMPRESSION: Normal study. Opacification left maxillary sinus is again noted. HEAD CT NONCONTRAST 03/22/2016 11:49 AM Impression: Opacified left maxillary sinus. Normal brain. Consultations: Dr. Amador Soriano, Infectious Disease Discharge Exam Review of Systems: Constitutional: No chills, No fever, No weakness Eyes: No discharge, No redness, No worsening of vision ENT: + nasal symptoms, No hearing loss, No unusual epistaxis Respiratory: + sputum, No cough, No dyspnea at rest, No dyspnea on exertion , No shortness of breath, No wheezing Cardiovascular: No chest pain, No edema, No palpitations Abdomen: No constipation, No diarrhea, No nausea, No pain, No vomiting Musculoskeletal: No calf pain, No joint pain, No muscle pain, No swelling Neurologic: No memory loss, No numbness/tingling, No paralysis, No vertigo, No weakness Psychiatric: No anhedonism, No depression symptoms, No substance abuse Hematologic / Lymphatic: No abnormal bleeding/bruising, No night sweats, No swollen lymph nodes Integumentary: No color change, No itch, No new/changing skin lesions, No rash Physical Exam: General Appearance: WD/WN, no apparent distress Eyes: normal inspection, EOMI ENT: normal ENT inspection, hearing grossly normal Respiratory/Chest: chest non-tender, lungs clear, normal breath sounds, no respiratory distress, no accessory muscle use Cardiovascular: regular rate, rhythm, no edema, no gallop, no murmur, normal peripheral pulses Abdomen / GI: normal bowel sounds, non tender, soft Extremities: normal inspection, no calf tenderness, no pedal edema Neurologic/Psychiatric: patient care II-XII nml as tested, no motor/sensory deficits , alert, normal mood/affect, oriented x 3 Skin: normal color, warm/dry, no rash Hospital Course HPI: The patient is a 45-year-old male who presents emergency department with worsening headache in particular over the past 24 hours. He reports that he initially developed a respiratory infection around Thanksgiving time which did resolve without treatment, then had a recurrence around Lorenza time which did seem to resolve somewhat. He did shortly after the second episode, developed additional sinus symptoms, and was placed on Augmentin by his PCP. He was seen at the emergency department 3 days ago, and was changed to levofloxacin. With the worsening of symptoms and developing of severe headache over the past 24 hours, he presents to the emergency department for assessment today, underwent a lumbar puncture under fluoroscopic guidance today, and was diagnosed with meningitis, and was then referred for evaluation for admission. HOSPITAL COURSE 45 yo male with recent history of sinusitis, opacification of L maxillary sinus on CT, admitted for meningitis- CSF culture results showed no growth, helping to rule out bacterial meningitis. Patient likely had a viral meningitis. Meningitis, uncertain etiology - CSF culture did not grow any organisms, therefore the patient's meningitis is likely viral - Infectious Disease was consulted- Dr. Amador Soriano saw patient and was agreeable to patient's discharge if the Lyme disease antibodies and CSF culture both returned negative. Both were negative. - IV Ceftriaxone and Vancomycin were administered for 48 hours - IV Dexamethasone q8h was administered for 48 hours. - Morphine was used for pain Seizure disorder - Continue with home medication of Oxcarbazepine 300mg PO QAM Depression - Continue home medication of Citalopram 40mg qPM Chronic back pain - Continue Oxycodone/Acetaminophen as needed Left maxillary sinusitis - An appointment has been scheduled with ENT for exam and repeat CT in 1-2 weeks VTE: EARLY AMBULATION/SCDs CODE STATUS: FULL DISPO: MED/SURG, with droplet precautions This includes examination of the patient, discharge planning, medication reconciliation, and communication with other providers. Discharge Instructions Please refer to the electronic Patient Visit Report (Discharge Instructions) for additional information. Follow-Up Follow up with PCP as soon as able to get an appointment. ENT appointment has been scheduled for the patient.
--- NOTE | 2016-03-24 15:31 | Discharge Summary ---
Discharge Summary Admission Date: Mar 22, 2016 at 15:06 Discharge Date: Mar 24, 2016 Discharge Disposition: Home Principal Diagnosis: Meningitis Procedures: Lumbar Puncture performed 03/22/16 CSF was clear colorless with no xanthochromia CSF WBC: 97 CSF RBC: 28 CSF GLUCOSE: 52 TOTAL PROTEIN: 85.2 LYME DISEASE IgG and IgM antibodies- negative CSF Culture: No Growth Gram stain- no organisms seen CT brain angiogram HEAD ANGIO WITH CONTRAST 03/22/2016 11:51 AM IMPRESSION: Normal study. Opacification left maxillary sinus is again noted. HEAD CT NONCONTRAST 03/22/2016 11:49 AM Impression: Opacified left maxillary sinus. Normal brain. Consultations: Dr Christie VALERA (Kristin Moore MD) Medication Reconciliation Continued Medications: Acetaminophen (Tylenol) 500 Mg Tab 1000 MG PO Q4 PRN for Pain, TAB Cetirizine (Zyrtec) 10 Mg Tab 10 MG PO DAILY, TAB Citalopram Hydrobromide (Celexa) 40 Mg Tab 40 MG PO QPM, TAB Fish Oil ([place]-3) 1 Ea Cap 4 GM PO DAILY, CAP Glucosamine Sulfate (Glucosamine) 1,000 Mg Tab 1000 MG PO DAILY, TAB Levofloxacin (Levaquin) 500 Mg Tab 500 MG PO DAILY for 10 Days, #10 TAB Naproxen (Aleve) 220 Mg Tab 440 MG PO DIRECTED, TAB Ondansetron Hcl (Zofran) 4 Mg Tab 4 MG PO Q6H PRN for Nausea, #10 TAB Oxcarbazepine (Trileptal) 150 Mg Tab 150 MG PO QPM, TAB Oxcarbazepine (Trileptal) 300 Mg Tab 300 MG PO QAM, TAB Oxycodone/Acetaminophen 5MG/325MG (Percocet 5MG/325MG) Tab 1 TAB PO Q6H PRN for Pain, #20 TAB Referrals At Discharge Follow up Referrals: Physician Referral - Please Call For Appointment with Cortez Anand Discharge Exam Review of Systems: Constitutional: No chills, No fever, No weakness Eyes: No discharge, No redness, No worsening of vision ENT: + nasal symptoms, No hearing loss, No unusual epistaxis Respiratory: + sputum, No cough, No dyspnea at rest, No dyspnea on exertion , No shortness of breath, No wheezing Cardiovascular: No chest pain, No edema, No palpitations Abdomen: No constipation, No diarrhea, No nausea, No pain, No vomiting Musculoskeletal: No calf pain, No joint pain, No muscle pain, No swelling Neurologic: No memory loss, No numbness/tingling, No paralysis, No vertigo, No weakness Psychiatric: No anhedonism, No depression symptoms, No substance abuse Hematologic / Lymphatic: No abnormal bleeding/bruising, No night sweats, No swollen lymph nodes Integumentary: No color change, No itch, No new/changing skin lesions, No rash Physical Exam: General Appearance: WD/WN, no apparent distress Eyes: normal inspection, EOMI ENT: normal ENT inspection, hearing grossly normal Respiratory/Chest: chest non-tender, lungs clear, normal breath sounds, no respiratory distress, no accessory muscle use Cardiovascular: regular rate, rhythm, no edema, no gallop, no murmur, normal peripheral pulses Abdomen / GI: normal bowel sounds, non tender, soft Extremities: normal inspection, no calf tenderness, no pedal edema Neurologic/Psychiatric: desktop engineer II-XII nml as tested, no motor/sensory deficits , alert, normal mood/affect, oriented x 3 Skin: normal color, warm/dry, no rash (Kristin Moore MD) Review of Systems: Constitutional: No fever Respiratory: No shortness of breath Cardiovascular: No chest pain Abdomen: No nausea, No pain, No vomiting Neurologic: No memory loss, No paralysis, No weakness Physical Exam: General Appearance: no apparent distress Respiratory/Chest: lungs clear, no respiratory distress Cardiovascular: regular rate, rhythm Abdomen / GI: normal bowel sounds, non tender, soft Neurologic/Psychiatric: no motor/sensory deficits, alert, normal mood/affect , normal reflexes, oriented x 3 Skin: warm/dry (Esetlle Mosqueda M.D.) Hospital Course HPI: The patient is a 45-year-old male who presents emergency department with worsening headache in particular over the past 24 hours. He reports that he initially developed a respiratory infection around gi time which did resolve without treatment, then had a recurrence around Lorenza time which did seem to resolve somewhat. He did shortly after the second episode, developed additional sinus symptoms, and was placed on Augmentin by his PCP. He was seen at the emergency department 3 days ago, and was changed to levofloxacin. With the worsening of symptoms and developing of severe headache over the past 24 hours, he presents to the emergency department for assessment today, underwent a lumbar puncture under fluoroscopic guidance today, and was diagnosed with meningitis, and was then referred for evaluation for admission. HOSPITAL COURSE 45 yo male with recent history of sinusitis, opacification of L maxillary sinus on CT, admitted for meningitis- CSF culture results showed no growth, helping to rule out bacterial meningitis. Patient likely had viral meningitis. Viral Meningitis - CSF culture did not grow any organisms, therefore the patient's meningitis is likely viral - Infectious Disease was consulted- Dr. Amador Soriano saw patient and was agreeable to patient's discharge if the Lyme disease antibodies and CSF culture both returned negative. Both were negative. - IV Ceftriaxone and Vancomycin were administered for 48 hours - IV Dexamethasone q8h was administered for 48 hours. - Morphine was used for pain Seizure disorder - Continue with home medication of Oxcarbazepine 300mg PO QAM Depression - Continue home medication of Citalopram 40mg qPM Chronic back pain - Continue Oxycodone/Acetaminophen as needed Left maxillary sinusitis - An appointment has been scheduled with ENT for exam and repeat CT in 1-2 weeks - *Patient to continue 8 further days of Levaquin 500mg daily until further review with ENT* VTE: EARLY AMBULATION/SCDs CODE STATUS: FULL DISPO: MED/SURG, with droplet precautions Total Time Spent: Greater than 30 minutes This includes examination of the patient, discharge planning, medication reconciliation, and communication with other providers. (Kristin Moore MD) I have reviewed the medical record and performed a history and physical examination of this patient today. I have discussed the case with Dr. Moore. The above note reflects my findings, conclusions, and recommendations Total Time Spent: Greater than 30 minutes (35 min) (Estelle Mosqueda M.D.) Discharge Instructions Please refer to the electronic Patient Visit Report (Discharge Instructions) for additional information. (Kristin Moore MD) Additional Copies To RV. Davila MD Resident Tracking Resident Involvement: Resident Care Provided Care Provided: Adult [facility] (Kristin Moore MD)
[2016-03-24] MEDS ORDERED: VANCOMYCIN TROUGH SCH (19:30)
[2016-03-27 08:28] LABS: CULTURE SOURCE CSF; ENTEROVIRUS PCR Not Detected (Not Detected); HSV TYPE 1 DNA Not Detected (Not Detected); HSV TYPE 1&2 DNA SOURCE CSF; HSV TYPE 2 DNA Not Detected (Not Detected); LYME IGG CSF NO BANDS DETECTED; LYME IGM CSF NO BANDS DETECTED
[2016-05-18] MEDS ORDERED: OXCA1TAB28 PO (08:50)
[2016-05-18] MEDS ORDERED: MULT-506 PO (08:50)
[2016-05-18] MEDS ORDERED: TRL300 PO (08:50)
[2016-05-18] MEDS ORDERED: ESCI1TAB10 PO (08:50)
[2016-05-18] MEDS ORDERED: GLUCTAB7 PO (08:50)
== END 2016-03-24 15:25 | disposition home or self-care (01) | DRG 76 ==
LOC: ENRESERVDT → ENRESERVTM → C.EDB 09:01 → C.MED 15:06
PROVIDERS: ADMIT Hospitalist; ATTEND Family Medicine
PROC: 009U3ZX Drainage of Spinal Canal, Percutaneous Approach, Diagnostic (ICD-10-PCS; principal; 2016-03-22)
DX: A87.9 Viral meningitis, unspecified (principal); R51 Headache; J01.01 Acute recurrent maxillary sinusitis; G40.909 Epilepsy, unspecified, not intractable, without status epilepticus; J30.9 Allergic rhinitis, unspecified; F32.9 Major depressive disorder, single episode, unspecified; M54.5 Low back pain; Z87.891 Personal history of nicotine dependence; G89.29 Other chronic pain

== ENCOUNTER → 2016-04-21 | Outpatient (CLI) | payer BC ==
[~2016-04-21] MED LIST changes: -AMOX875T PO; +ESCI1TAB10 PO; +GLUCTAB7 PO; -LEVO-366 PO; +MULT-506 PO; +NAPR1TAB9 PO; +OXCA1TAB28 PO; +TRL300 PO
--- NOTE | 2016-04-21 10:25 | DIAGNOSTIC IMAGING REPORT ---
FUSION CT SINUSES W/O CLINICAL HISTORY: J32.0 Left maxillary [id number] Acquired deviated nasal sept COMPARISON STUDY: No previous studies for comparison. FINDINGS: The mastoid air cells appear symmetrically aerated. Middle ear cavities appear symmetrically aerated. No orbital masses are visualized. There is no hydrocephalus. There is complete opacification of the left axillary sinus. The left ostiomeatal unit is completely occluded by soft tissue. There is probable bony erosion involving the superior medial wall the left maxillary sinus. Soft tissue extends into the left nasal cavity. The right ostiomeatal unit is patent. There is a minor right-sided nasal septal spur. There is minimal mucosal thickening within the sphenoid ethmoid and frontal sinuses. The frontoethmoidal recesses are patent. IMPRESSION: 1. Complete opacification of the left maxillary sinus. There is bony erosion involving the superior medial wall of the left maxilla sinus. Soft tissue extends into the left nasal cavity. There is complete obstruction of the left ostiomeatal unit. Electronically signed by: Randolph Pena M.D. 04/21/2016 10:23 AM Dictated Date/Time: 04/21/2016 10:16 AM
== END | disposition home or self-care (01) ==
LOC: C.CTS 09:52
DX: J34.2 Deviated nasal septum (principal); J34.3 Hypertrophy of nasal turbinates; J32.0 Chronic maxillary sinusitis; R68.89 Other general symptoms and signs

== ENCOUNTER → 2016-05-27 | Outpatient (CLI) | payer BC ==
[~2016-05-27] MED LIST changes: -ACET-1256 PO; -CETI10TA84 PO; -CITA40TA12 PO; -GLUC10007 PO; -NAPR1TAB9 PO; -OMEG10007 PO; -ONDA4TAB46 PO; -OXCA150T2 PO; -OXCA1TAB28 PO; -OXCA300T PO; -OXYC-57 PO
--- NOTE | 2016-05-27 12:01 | DIAGNOSTIC IMAGING REPORT ---
TWO VIEW CHEST CLINICAL HISTORY: Preoperative examination. FINDINGS: PA and lateral chest radiographs are obtained. No prior studies are available for comparison at the time of dictation. The cardiomediastinal silhouette is unremarkable. Nonspecific interstitial thickening is noted. Emphysematous change is questioned. No airspace consolidation or pleural effusion is seen. There is no pneumothorax. The bony thorax appears intact. There are healed right-sided rib fractures. IMPRESSION: No active disease in the chest. Electronically signed by: Armando Arriaza M.D. 05/27/2016 11:59 AM Dictated Date/Time: 05/27/2016 11:58 AM
[2016-05-27 14:55] LABS: POTASSIUM 4.3 mmol/L (3.5-5.1)
[2016-05-27 15:03] LABS: BASO % 0.4 %; BASO ABS # 0.03 K/uL (0-0.2); COMPLETE YES; EOS % 4.1 %; IG% 0.8 %; LYMPH % 19.9 %; LYMPH ABS # 1.52 K/uL (1.2-3.4); MEAN CELL VOLUME 84.7 fL (80-100); MEAN CORPUSCULAR HEMOGLOBIN 29.2 pg (25-34); MEAN CORPUSCULAR HGB CONC 34.5 g/dl (32-36); MEAN PLATELET VOLUME 10.1 fL (7.4-10.4); MONO % 10.1 %; NEUT % 64.7 %; PLATELET COUNT 302 K/uL (130-400); RED BLOOD COUNT 5.55 M/uL (4.7-6.1); WHITE BLOOD COUNT 7.62 K/uL (4.8-10.8)
[2016-05-27 15:04] LABS: INR 1.1 (0.9-1.1); PARTIAL THROMBOPLASTIN RATIO 1.2; PROTHROMBIN TIME (PATIENT) 11.4 SECONDS (9.0-12.0)
== END | disposition home or self-care (01) ==
LOC: C.RADBC 11:34
DX: Z01.818 Encounter for other preprocedural examination (principal)

== ENCOUNTER → 2016-06-01 | Day surgery (SDC) | payer BC ==
[2016-05-18 08:51] VITALS: Ht 188 cm; Wt 138.6 kg
[~2016-06-01] VITALS: Ht 188 cm; Wt 138.6 kg
[~2016-06-01] MED LIST changes: +ATROPINE SULFATE 0.1 MG/ML 5ML SYR IV PRN; +CEFAZOLIN 3000 MG/65 ML D5W IV SCH; +DEXAMETHASONE SOD INJ 4 MG/ML VIAL ONE; +EpHEDrine SULFATE INJ 50 MG/ML AMP IV PRN; +EpINEphrine INJ 1MG/ML AMP 1 MG/ML AMP ONE; +FENTANYL CITRATE INJ 50 MCG/1 ML 2 ML VIAL IV PRN; +FENTANYL CITRATE INJ 50 MCG/1 ML 2 ML VIAL ONE; +GLYCOPYRROLATE INJ 0.2 MG/ML VIAL ONE; +HYDROCODONE/ACETAMOPHEN 5/325MG TAB ONE; +HYDROCODONE/ACETAMOPHEN 5/325MG TAB PO PRN; +LACTATED RINGER'S 1000ML 1,000 ML IV SCH; +LIDOCAINE 4% MPF SOAK 5 ML = 1 DOSE TOP ONE; +LIDOCAINE HCL 2% 2 ML VIAL (20MG/ML) ONE; +LIDOCAINE/EPINEPHRINE 1% INJ 50 ML VIAL ONE; +MIDAZOLAM HCL 1 MG/ML 2ML VIAL ONE; +NEOSTIGMINE METHYLSULFATE 5 MG/5 ML SYR ONE; +ONDANSETRON INJ 2 MG/ML 2 ML VIAL IV PRN; +ONDANSETRON INJ 2 MG/ML 2 ML VIAL ONE; +OXYMETAZOLINE HCL 0.05% NA SPR 15 ML BTL PRN; +OXYMETAZOLINE HCL 0.05% NA SPR 15 ML BTL SCH; +PROPOFOL IV EMULSION 10 MG/ML 20 ML VIAL IV ONE
--- NOTE | 2016-06-01 10:00 | History & Physical Bridge - SC ---
H&P Re-Evaluation Bridge Note: I have examined the patient, reviewed the History & Physical and in the interval since the performance of the History & Physical I have noted the following changes of clinical significance: No changes noted
[2016-06-01] MEDS: EpINEphrine INJ 1MG/ML AMP 1 MG/ML AMP ONE ×2 (10:59→11:01)
--- NOTE | 2016-06-01 11:29 | [facility] Operative Report ---
Operative Report Operative Date Jun 01, 2016. Pre-Operative Diagnosis Acquired Deviated Septum, Hypertrophy Nasal Turbinates, Nasal Airway Abnormality, Chronic Ethmoid Sinusitis, Left Maxillary Sinusitis Post-Operative Diagnosis Same Procedure(s) Performed Septoplasty, Bilateral Inferior Turbinate Reduction And Left Sided Endoscopic Sinus Surgery (Maxillary Antrostomy & Anterior Ethmoidectomy) Surgeon Dr. Anand Animal Control Specialist Surgeon(s) None Estimated Blood Loss 25 ml Findings POLYPOID MUCOSAL THICKENING OF THE LEFT MAXILLARY AND ANTERIOR ETHMOID SINUSES; B DNS; B ITH Specimens None I attest to the content of the Intraoperative Record and any orders documented therein. Any exceptions are noted below.
--- NOTE | 2016-06-01 11:31 | Discharge Instructions ---
Discharge Instructions Date of Service Jun 01, 2016. Admission Reason for Admission: Acquired Deviated Septum, Hypertrophy Nasal Turbin Discharge Discharge Diagnosis / Problem: SAME Discharge Goals Goal(s): Therapeutic intervention Activity Recommendations Activity Limitations: as noted below LIGHT ACTIVITY FOR 2WEEKS; NO NOSE BLOWING FOR 2 WEEKS; NO DRIVING WHILE ON NORCO . Current Hospital Diet Patient's current hospital diet: Discharge Diet Recommended Diet: Regular Diet Procedures Procedures Performed: Septoplasty, Bilateral Inferior Turbinate Reduction And Left Sided Endoscopic Sinus Surgery (Maxillary Antrostomy & Anterior Ethmoidectomy) Pending Studies Studies pending at discharge: no Medical Emergencies . Who to Call and When: Medical Emergencies: If at any time you feel your situation is an emergency, please call 911 immediately. . Non-Emergent Contact Non-Emergency issues call your: Surgeon . . "Provider Documentation" section prepared by Cortez Anand. VTE Core Measure Inpt VTE Proph given/why not?: SCD's
[2016-06-01 12:30] VITALS: TEMP 36.6
--- NOTE | 2016-06-01 12:56 | Anesthesia Progress Nt - [facility] ---
Anesthesia Post Op Note Date & Time Jun 01, 2016 at 12:55 Vital Signs Pain Intensity: 6 Vital Signs Past 12 Hours Date Time Temp Pulse Resp B/P Pulse Ox O2 Delivery O2 Flow Rate FiO2 06/01/16 12:30 36.6 71 20 142/87 96 Room Air 06/01/16 12:10 36.3 69 16 127/86 94 Room Air 06/01/16 12:00 66 20 126/80 92 Room Air 06/01/16 11:50 66 20 130/72 93 Room Air 06/01/16 11:40 68 20 132/79 93 Room Air 06/01/16 11:29 71 18 125/87 97 Humidified Oxygen 10 06/01/16 11:19 36.3 77 18 154/91 96 Humidified Oxygen 10 06/01/16 10:03 36.4 73 20 121/76 94 Room Air Notes Mental Status: alert / awake / arousable, participated in evaluation Pt Amnestic to Procedure: Yes Nausea / Vomiting: adequately controlled Pain: adequately controlled, improving with treatment Airway Patency, RR, SpO2: stable & adequate BP & HR: stable & adequate Hydration State: stable & adequate Anesthetic Complications: no major complications apparent
[2016-06-01 13:07] VITALS: BP 141/80; PULSE 72; O2SAT 94
--- NOTE | 2016-06-01 14:23 | OPERATIVE REPORT ---
DATE OF OPERATION: 06/01/2016 PREOPERATIVE DIAGNOSES: 1. Left chronic sinusitis. 2. Bilateral septal deviation. 3. Bilateral inferior turbinate hypertrophy. POSTOPERATIVE DIAGNOSES: 1. Left chronic sinusitis. 2. Bilateral septal deviation. 3. Bilateral inferior turbinate hypertrophy. PROCEDURES: 1. Left maxillary antrostomy. 2. Left anterior ethmoidectomy. 3. Septoplasty. 4. Bilateral inferior turbinate outfracture and turbinoplasty. SURGEON: Dr. Anand. ANESTHESIA: General endotracheal. ESTIMATED BLOOD LOSS: 25 mL. FINDINGS: 1. Polypoid mucosal thickening involving the left maxillary and anterior ethmoid sinus. 2. Bilateral septal deviation. 3. Bilateral inferior turbinate hypertrophy. SPECIMENS: None. COMPLICATIONS: None. INDICATIONS FOR THE PROCEDURE: The patient is a 45-year-old male who has a history of viral meningitis for which in his workup he had a CT scan of the sinuses which incidentally revealed a left maxillary and anterior ethmoid sinusitis which did not respond to maximum medical therapy including systemic antibiotics and steroids. A posttreatment fusion CT scan showed complete opacification of the left maxillary sinus and portion of the left anterior ethmoid sinus. In addition, he has left greater than right septal deviation and bilateral inferior turbinate hypertrophy. Interestingly, he recently was diagnosed with a dental abscess and a left maxillary molar which was removed and there was a large amount of purulence by report. He initially had a left oral maxillary fistula which healed. Nevertheless, he continues to have left maxillary pressure and presents for the above-mentioned procedure on an outpatient elective basis. DESCRIPTION OF PROCEDURE: After informed consent had been obtained from the patient, the patient was wheeled to the operating room and placed on the operating table in supine position. Monitors were placed. After induction of general endotracheal anesthesia, the patient was prepped in usual fashion for endoscopic sinus surgery. Lidocaine and epinephrine pledgets were placed in the bilateral nasal cavities and pressure applied. The left-sided pledgets were removed. A freer elevator was used to medialize the left middle turbinate. The left middle turbinate and lateral nasal wall were injected with 1% lidocaine with 1:100,000 epinephrine. A lidocaine and epinephrine pledget was then placed into the left middle meatus. After allowing adequate time for vasoconstriction and anesthesia, the left-sided pledget was removed and a Sanford elevator was used to incise the uncinate process which was removed using straight Taj-Cut forceps and powered instrumentation. The natural ostium of the left maxillary sinus was identified and this was enlarged anteriorly, inferiorly, and posteriorly using straight Taj-Cut forceps, backbiting forceps, and powered instrumentation. Of note, there was polypoid mucosal thickening involving the left maxillary sinus, but no purulence encountered. An anterior ethmoidectomy was then performed using powered instrumentation. The nasal septum was then injected with 1% lidocaine with 1:100,000 epinephrine. Lidocaine and Afrin pledgets were then placed into the bilateral nasal cavities and pressure applied. The pledgets were then removed. A #15 scalpel was used to make a left [place] incision through which the left-sided mucoperichondrial mucoperiosteal flap was elevated. A #15 scalpel was then used to incise the quadrangular cartilage with care to preserve a 1.5 cm dorsal and caudal strut through which the right-sided mucoperichondrial mucoperiosteal flap was elevated. A Bert silver knife was then used to remove the deviated portion of the quadrangular cartilage which was impinging on the airway on the left hand side anteriorly. The patient was found to have a cartilaginous and bony septal spur impinging on the airway inferiorly on the right hand side. This was removed using osteotome, mallet, and Bita forceps. After removal of the septal spur, the septum was found to be midline. The septal cavity was suctioned. The left Ahsan incision was closed with several simple interrupted 4-0 chromic sutures. A 4-0 plain gut suture on a Juno needle was then used to perform a quilting stitch of the mucoperichondrial mucoperiosteal flaps bilaterally to help prevent septal hematoma. A Gonzales elevator was then used to infracture and subsequently outfracture the inferior turbinates bilaterally. Inferior turbinates were injected with 1% lidocaine with 1:100,000 epinephrine. A 2.0 mm turbinate blade using powered instrumentation was then used to perform bilateral inferior turbinoplasties in a submucosal fashion. The nasal cavities and nasopharynx were then suctioned. Merogel was placed into the left ethmoid cavity and middle meatus. An orogastric tube was placed and the stomach was suctioned free of air and stomach contents. This marked the end of the case. The patient tolerated the procedure well. There were no apparent complications. The patient was extubated and transferred to recovery room in stable condition. I attest to the content of the Intraoperative Record and any orders documented therein. Any exceptio ns are noted below.
--- NOTE | 2016-06-03 12:27 | HISTORY & PHYSICAL EXAMINATION ---
DATE OF ADMISSION: 06/01/2016 CHIEF COMPLAINT: Chronic sinusitis. HISTORY OF PRESENT ILLNESS: The patient is a 45-year-old male who had opacification of his left maxillary sinus on a CT scan of the head done on 03/22/2016 after being worked up for what sounds like viral meningitis. Despite antibiotics and steroids he had persistent left maxillary sinus opacification in addition to right greater than left, septal deviation, bilateral inferior turbinate hypertrophy. He recently had a dental abscess with a left maxillary molar extracted and had initially an oral maxillary fistula. He continues to have left maxillary pressure and right greater than left nasal airway obstruction. He presents for the above-mentioned procedure on an outpatient elective basis. ALLERGIES: No known drug allergies. MEDICATIONS: Prior to admission, citalopram, oxcarbazepine, triamcinolone cream, fish oil, multivitamin, Zyrtec, metronidazole cream. PAST MEDICAL HISTORY: 1. As above. 2. Anxiety. 3. Bipolar disorder. 4. Borderline personality disorder. 5. Eczema. 6. History of viral meningitis and seizure. 7. Obesity. 8. Schizoaffective disorder. 9. Obstructive sleep apnea. 10. Tinnitus. 11. Ventral hernia. PAST SURGICAL HISTORY: 1. History of dental surgery. 2. History of vasectomy. FAMILY HISTORY: Noncontributory. SOCIAL HISTORY: The patient is a former smoker. He is . He has a history of drug use. He is employed. He drinks alcohol socially. REVIEW OF SYSTEMS: The patient has left maxillary pressure and fullness. He has right greater than left nasal airway obstruction. PHYSICAL EXAMINATION: GENERAL: On physical examination, the patient's right greater than left, septal deviation and bilateral inferior turbinate hypertrophy. He has inflammation within the left middle meatus. LUNGS: Clear to auscultation bilaterally. HEART: Rate regular rhythm without murmurs, rubs or gallops. ASSESSMENT AND PLAN: A 45-year-old male with left maxillary sinus opacification as well as right greater than left, septal deviation and bilateral inferior turbinate hypertrophy who presents today for left-sided endoscopic sinus surgery, septoplasty, and bilateral inferior turbinate reduction.
== END | disposition home or self-care (01) ==
LOC: X.SURG 09:53
DX: J32.9 Chronic sinusitis, unspecified (principal); J34.2 Deviated nasal septum; J34.3 Hypertrophy of nasal turbinates; G47.33 Obstructive sleep apnea (adult) (pediatric); F32.9 Major depressive disorder, single episode, unspecified; F41.9 Anxiety disorder, unspecified; E66.9 Obesity, unspecified; F12.90 Cannabis use, unspecified, uncomplicated; Z68.39 Body mass index [BMI] 39.0-39.9, adult; Z98.52 Vasectomy status; Z98.818 Other dental procedure status; Z87.891 Personal history of nicotine dependence

== ENCOUNTER → 2016-06-16 | Outpatient (CLI) | payer BC ==
[~2016-06-16] VITALS: Ht 188 cm; Wt 139.2 kg
[~2016-06-16] MED LIST changes: -ATROPINE SULFATE 0.1 MG/ML 5ML SYR IV PRN; -CEFAZOLIN 3000 MG/65 ML D5W IV SCH; -DEXAMETHASONE SOD INJ 4 MG/ML VIAL ONE; -EpHEDrine SULFATE INJ 50 MG/ML AMP IV PRN; -EpINEphrine INJ 1MG/ML AMP 1 MG/ML AMP ONE; -FENTANYL CITRATE INJ 50 MCG/1 ML 2 ML VIAL IV PRN; -FENTANYL CITRATE INJ 50 MCG/1 ML 2 ML VIAL ONE; -GLYCOPYRROLATE INJ 0.2 MG/ML VIAL ONE; -HYDROCODONE/ACETAMOPHEN 5/325MG TAB ONE; -HYDROCODONE/ACETAMOPHEN 5/325MG TAB PO PRN; -LACTATED RINGER'S 1000ML 1,000 ML IV SCH; -LIDOCAINE 4% MPF SOAK 5 ML = 1 DOSE TOP ONE; -LIDOCAINE HCL 2% 2 ML VIAL (20MG/ML) ONE; -LIDOCAINE/EPINEPHRINE 1% INJ 50 ML VIAL ONE; -MIDAZOLAM HCL 1 MG/ML 2ML VIAL ONE; -NEOSTIGMINE METHYLSULFATE 5 MG/5 ML SYR ONE; -ONDANSETRON INJ 2 MG/ML 2 ML VIAL IV PRN; -ONDANSETRON INJ 2 MG/ML 2 ML VIAL ONE; -OXYMETAZOLINE HCL 0.05% NA SPR 15 ML BTL PRN; -OXYMETAZOLINE HCL 0.05% NA SPR 15 ML BTL SCH; -PROPOFOL IV EMULSION 10 MG/ML 20 ML VIAL IV ONE
[2016-06-16 12:49] VITALS: BP 135/84; PULSE 74; Ht 188 cm; Wt 139.2 kg
== END | disposition home or self-care (01) ==
LOC: C.NEUR 11:55
PROVIDERS: ATTEND Physician Assistant Medical
DX: G47.33 Obstructive sleep apnea (adult) (pediatric) (principal)

== ENCOUNTER → 2016-12-29 | Outpatient (CLI) | payer BC ==
[~2016-12-29] VITALS: Ht 188 cm; Wt 144.7 kg
[2016-12-29 16:08] VITALS: BP 146/83; PULSE 69; Ht 188 cm; Wt 144.7 kg
== END | disposition home or self-care (01) ==
LOC: C.NEUR 15:44
PROVIDERS: ATTEND Internal Medicine Pulmonary Disease
DX: G47.33 Obstructive sleep apnea (adult) (pediatric) (principal)